=== PATIENT | female | born 1940 | race African-American/Black ===

== ENCOUNTER 2017-01-08 11:42 | Emergency (ER) | payer BC, MEDICAID ==
[~2017-01-08] VITALS: Ht 152.4 cm; Wt 102.5 kg
[~2017-01-08 11:42] MED LIST: AMLO5TAB2; BENA20TA2; CLON0.2T; FURO40TA4; GABA300C8; HYDR-2762; ISOS60TA2; MELA3TAB PO; METO50TA10; SIMV40TA3; SPIR25TA3
[2017-01-08] MEDS ORDERED: IV NORMAL SALINE 1000ML BAG 1,000 ML IV SCH (12:40)
[2017-01-08] MEDS ORDERED: ONDANSETRON PF 4 MG/2 ML VIAL. IV ONE (12:45)
[2017-01-08] MEDS ORDERED: fentaNYL PF VIAL 100 MCG/2 ML VIAL IV PRN (12:45)
--- NOTE | 2017-01-08 12:47 | PHYS DOC ---
Past Medical History Past Medical History: Asthma, Diabetes-Type II, Hypertension Past Surgical History: Hysterectomy Alcohol Use: None Drug Use: None Adult General Chief Complaint Chief Complaint: ABDOMINAL PAIN HPI HPI Patient is a 76 year old female who presents with complaint of abdominal pain. Patient states that her symptoms started 2 days ago. Patient states that since onset of symptoms she has had difficulty tolerating oral intake. The patient states that she is having worsening pain around her umbilicus that comes in waves. Patient states she is having difficulty describing her pain but knows that it "hurts." Patient rates her pain currently as 7 out of 10. Patient states she tried taking Tylenol to help with symptoms with no relief. Patient denies any vomiting but does have nausea. Patient denies any bloody stools. Patient denies any history of similar symptoms. Patient has had surgical history of open appendectomy and hysterectomy. Review of Systems Review of Systems Constitutional: Denies fever or chills [] Eyes: Denies change in visual acuity, redness, or eye pain [] HENT: Denies nasal congestion or sore throat [] Respiratory: Denies cough or shortness of breath [] Cardiovascular: Denies chest pain or edema [] GI: Abdominal pain, nausea, denies vomiting, bloody stools or diarrhea [] : Denies dysuria or hematuria [] Musculoskeletal: Denies back pain or joint pain [] Integument: Denies rash or skin lesions [] Neurologic: Denies headache, focal weakness or sensory changes [] Current Medications Current Medications Current Medications Medications (Trade) Dose Ordered Sig/Jose Alejandro Start Time Stop Time Status Last Admin Dose Admin Fentanyl Citrate (Fentanyl 2ml Vial) 50 mcg PRN Q15MIN PRN 01/08/17 12:45 01/09/17 12:44 01/08/17 13:09 50 MCG Ondansetron HCl (Zofran) 4 mg 1X ONCE 01/08/17 12:45 01/08/17 12:46 DC 01/08/17 13:09 4 MG Sodium Chloride 1,000 ml @ 100 mls/hr Q10H 01/08/17 12:40 01/08/17 22:39 01/08/17 13:08 100 MLS/HR Allergies Allergies Allergies Coded Allergies Type Severity Reaction Last Updated Verified Sulfa (Sulfonamide Antibiotics) Allergy Intermediate 09/19/14 Yes Physical Exam Physical Exam Constitutional: Alert, obese, afebrile, appears in moderate discomfort. [] HENT: Normocephalic, atraumatic, bilateral external ears normal, oropharynx moist, no oral exudates, nose normal. [] Eyes: PERRLA, EOMI, conjunctiva normal, no discharge. [] Neck: Normal range of motion, no tenderness, supple, no stridor. [] Cardiovascular:Heart rate regular rhythm, no murmur [] Lungs & Thorax: Bilateral breath sounds clear to auscultation [] Abdomen: Hypoactive bowel sounds, mild abdominal distention, tenderness palpation in periumbilical area of abdomen with guarding, no masses, no pulsatile masses. [] Skin: Warm, dry, no erythema, no rash. [] Back: No tenderness, no CVA tenderness. [] Extremities: No tenderness, no cyanosis, no clubbing, ROM intact, no edema. [] Neurologic: Alert and oriented X 3, normal motor function, normal sensory function, no focal deficits noted. [] Current Patient Data Vital Signs Vital Signs Date Time Temp Pulse Resp B/P (MAP) Pulse Ox O2 Delivery O2 Flow Rate FiO2 01/08/17 15:04 86 16 140/65 (90) 99 Room Air 01/08/17 11:50 98.9 98.9 Lab Values Laboratory Tests Test 01/08/17 12:05 01/08/17 13:55 White Blood Count 12.7 x10^3/uL (4.0-11.0) H Red Blood Count 4.36 x10^6/uL (3.50-5.40) Hemoglobin 13.0 g/dL (12.0-15.5) Hematocrit 39.4 % (36.0-47.0) Mean Corpuscular Volume 90 fL (79-100) Mean Corpuscular Hemoglobin 30 pg (25-35) Mean Corpuscular Hemoglobin Concent 33 g/dL (31-37) Red Cell Distribution Width 14.0 % (11.5-14.5) Platelet Count 285 x10^3/uL (140-400) Neutrophils (%) (Auto) 81 % (31-73) H Lymphocytes (%) (Auto) 15 % (24-48) L Monocytes (%) (Auto) 3 % (0-9) Eosinophils (%) (Auto) 1 % (0-3) Basophils (%) (Auto) 0 % (0-3) Neutrophils # (Auto) 10.3 x10^3uL (1.8-7.7) H Lymphocytes # (Auto) 1.8 x10^3/uL (1.0-4.8) Monocytes # (Auto) 0.4 x10^3/uL (0.0-1.1) Eosinophils # (Auto) 0.1 x10^3/uL (0.0-0.7) Basophils # (Auto) 0.0 x10^3/uL (0.0-0.2) Sodium Level 141 mmol/L (136-145) Potassium Level 4.8 mmol/L (3.5-5.1) Chloride Level 103 mmol/L (98-107) Carbon Dioxide Level 27 mmol/L (21-32) Anion Gap 11 (6-14) Blood Urea Nitrogen 26 mg/dL (7-20) H Creatinine 1.4 mg/dL (0.6-1.0) H Estimated GFR (Cockcroft-Gault) 44.4 BUN/Creatinine Ratio 19 (6-20) Glucose Level 151 mg/dL (70-99) H Calcium Level 8.7 mg/dL (8.5-10.1) Total Bilirubin 0.4 mg/dL (0.2-1.0) Aspartate Amino Transferase (AST) 22 U/L (15-37) Alanine Aminotransferase (ALT) 14 U/L (14-59) Alkaline Phosphatase 70 U/L (46-116) Total Protein 7.0 g/dL (6.4-8.2) Albumin 3.3 g/dL (3.4-5.0) L Albumin/Globulin Ratio 0.9 (1.0-1.7) L Lipase 191 U/L (73-393) Urine Color [place] Urine Clarity Cloudy Urine pH 6.0 Urine Specific [place] >=1.030 Urine Protein 30 mg/dL (NEG-TRACE) Urine Glucose (UA) Negative mg/dL (NEG) Urine Ketones (Stick) Trace mg/dL (NEG) Urine Blood Negative (NEG) Urine Nitrite Negative (NEG) Urine Bilirubin Small (NEG) Urine Urobilinogen Dipstick 0.2 mg/dL (0.2 mg/dL) Urine Leukocyte Esterase Small (NEG) Urine RBC 0 /HPF (0-2) Urine WBC 1-4 /HPF (0-4) Urine Squamous Epithelial Cells Occ /LPF Urine Amorphous Sediment Present /HPF Urine Bacteria 0 /HPF (0-FEW) Urine Mucus Slight /LPF Laboratory Tests 01/08/17 12:05 Laboratory Tests 01/08/17 12:05 EKG EKG Interpreted by me: Heart rate 92, sinus rhythm, normal intervals, leftward axis , no acute ST/T-wave abnormalities present [] Radiology/Procedures Radiology/Procedures [facility] [address] [place] [address] IMAGING REPORT Signed PATIENT: SANDRA BILLINSG ACCOUNT: [id number] : 1940 LOCATION: ER AGE: 76 SEX: F EXAM STATUS: REG ER ORD. PHYSICIAN: RONNI GOMEZ MD REASON: abdominal pain PROCEDURE: CT ABDOMEN PELVIS WO CONTRAST CT of the abdomen and pelvis without contrast, 01/08/2017: History: Abdominal pain, nausea Noncontrast scans were obtained as requested. Comparison is made to a study from 12/29/2011. There is mild streaky atelectasis and/or scarring in the lung bases. Coronary artery calcifications are present. The heart is mildly enlarged. The unopacified liver shows no abnormality. No dense gallstones are seen. The pancreas is unremarkable. The spleen is of normal size. No right renal abnormality is detected. The left kidney is in an abnormal position located posterolaterally. The adjacent abdominal wall musculature is thin. The kidney appears to be adherent to the fascia at this level. The findings may be on a postsurgical basis. There is a nonobstructing 13 mm calculus in the lower pole of the left kidney which has increased in size since the previous study. The left renal collecting system is not dilated. The ureters are not dilated. No ureteral calculus is seen. Aortoiliac calcific plaquing is present without evidence of aneurysm. No abdominal or pelvic adenopathy is evident. There are surgical sutures involving the abdominal wall at the right groin level. The uterus is surgically absent. Colonic diverticula are present predominantly in the sigmoid and descending colon. No paracolonic inflammatory process is seen. The bowel loops are not dilated. The appendix is surgically absent. The stomach is not adequately delineated due to lack of distention and contrast opacification. There is a trace amount of free fluid in the deep pelvis. No free air is evident in the abdomen or pelvis. There is a small umbilical hernia containing only fat. There are moderate scattered degenerative changes in the spine. A lucency within the left side of the L1 vertebral body is unchanged suggesting a benign etiology. IMPRESSION: 1. Abnormal position of the left kidney suggesting partial herniation through an abdominal wall defect, perhaps postsurgical. This is unchanged since 2011. 2. Nonobstructing left intrarenal calculus. 3. Colonic diverticulosis. 4. Trace amount of free fluid in the pelvis. 5. Small fat-containing umbilical hernia. 6. Coronary artery disease. PQRS Compliance Statement: One or more of the following individualized dose reduction techniques were utilized for this examination: 1. Automated exposure control 2. Adjustment of the mA and/or kV according to patient size 3. Use of iterative reconstruction technique DICTATED and SIGNED BY: SHERMAN SHIN MD DATE: 01/08/17 9260 CC: INÉS CHAVEZ MD; RONNI GOMEZ MD ~ [] Course & Med Decision Making Course & Med Decision Making Pertinent Labs and Imaging studies reviewed. (See chart for details) Patient was given fentanyl, Zofran, and IV fluids in the emergency department. On reevaluation, patient states her symptoms have improved. Patient had several nonacute findings on her abdominal CT. The patient's location of pain is near a small umbilical hernia site that does not contain any bowel. The patient may be experiencing pain due to incarceration of a fat containing periumbilical hernia. The patient may be discharged with recommended follow-up in [address] Chavez. Patient provided with a prescription for [place] to help with pain control. Advised return emergency department for any worsening symptoms. Patient voiced understanding and in agreement with treatment plan. Dragon Disclaimer Dragon Disclaimer This electronic medical record was generated, in whole or in part, using a voice recognition dictation system. Departure Departure Impression: Primary Impression: Abdominal pain Disposition: 01 HOME, SELF-CARE Condition: IMPROVED Referrals: INÉS CHAVEZ MD (PCP) Patient Instructions: Abdominal Pain Additional Instructions: Follow-up in [address] Chavez for reevaluation. Return to the emergency department for any worsening symptoms. Scripts Ondansetron (ZOFRAN ODT) 4 Mg Tab.rapdis 4 MG PO Q8HRS Y for NAUSEA/VOMITING, #10 TAB Prov: RONNI GOMEZ MD 01/08/17 Hydrocodone/Apap 5-325 (NORCO 5-325 TABLET) 1 Each Tablet 1-2 TAB PO Q4-6HRS Y for PAIN, #20 TAB Prov: RONNI GOMEZ MD 01/08/17 Problem Qualifiers Primary Impression: Abdominal pain Abdominal location: periumbilical Qualified Codes: R10.33 - Periumbilical pain RONNI GOMEZ MD January 08, 2017 12:47
--- NOTE | 2017-01-08 13:08 | EKG ---
[facility] [address] [place] [address] Test Date: 2017-01-08 Test Time: 11:55:22 Pat Name: SANDRA BILLINGS Department: Room: Gender: F Studio Engineer: : 1940 Requested By: RONNI GOMEZ Order Number: [id number] Reading MD: oJselin Fitzgerald Measurements Intervals [place] Rate: 92 P: 18 AL: 172 QRS: -24 QRSD: 82 T: 28 QT: 374 QTc: 468 Interpretive Statements SINUS RHYTHM LEFTWARD AXIS OTHERWISE NORMAL ECG RI6.01 Unconfirmed report Compared to ECG 12/29/2011 08:25:55 Left-axis deviation now present T-wave abnormality no longer present Electronically Signed On 01-11-2017 20:39:46 CDT by Joselin Fitzgerald
[2017-01-08 13:10] LABS: BASO % 0 % (0-3); EOS % 1 % (0-3); HEMATOCRIT 39.4 % (36.0-47.0); LYMPH # 1.8 x10^3/uL (1.0-4.8); LYMPH % 15 % (24-48); MEAN CORPUSCULAR HEMOGLOBIN 30 pg (25-35); MEAN CORPUSCULAR HGB CONC 33 g/dL (31-37); MEAN CORPUSCULAR VOLUME 90 fL (79-100); MONO % 3 % (0-9); NEUT % 81 % (31-73); PLATELET COUNT 285 x10^3/uL (140-400); RED BLOOD COUNT 4.36 x10^6/uL (3.50-5.40); WHITE BLOOD COUNT 12.7 x10^3/uL (4.0-11.0)
[2017-01-08 13:23] LABS: CALCIUM 8.7 mg/dL (8.5-10.1); CREATININE 1.4 mg/dL (0.6-1.0); GFR 44.4
[2017-01-08 13:24] LABS: POTASSIUM 4.8 mmol/L (3.5-5.1)
[2017-01-08 13:30] LABS: ALBUMIN 3.3 g/dL (3.4-5.0); ALBUMIN/GLOBULIN RATIO 0.9 (1.0-1.7); TOTAL BILIRUBIN 0.4 mg/dL (0.2-1.0)
[2017-01-08 14:16] LABS: BILIRUBIN,URINE SMALL (NEG); GLUCOSE,URINE NEGATIVE (NEG); NITRITE,URINE NEGATIVE (NEG); PROTEIN,URINE 30 mg/dL (NEG-TRACE); UROBILINOGEN,URINE 0.2 mg/dL (0.2 mg/dL)
[2017-01-08 14:48] LABS: BACTERIA,URINE 0 /HPF (0-FEW); RBC,URINE 0 /HPF (0-2); SQUAMOUS EPITHELIAL CELL,UR OCC /LPF
[2017-01-08] MEDS ORDERED: HYDR-971 PO (15:07)
[2017-01-08] MEDS ORDERED: ONDA4TAB10 PO (15:07)
--- NOTE | 2017-01-08 15:20 | RAD ---
CT of the abdomen and pelvis without contrast, 01/08/2017: History: Abdominal pain, nausea Noncontrast scans were obtained as requested. Comparison is made to a study from 12/29/2011. There is mild streaky atelectasis and/or scarring in the lung bases. Coronary artery calcifications are present. The heart is mildly enlarged. The unopacified liver shows no abnormality. No dense gallstones are seen. The pancreas is unremarkable. The spleen is of normal size. No right renal abnormality is detected. The left kidney is in an abnormal position located posterolaterally. The adjacent abdominal wall musculature is thin. The kidney appears to be adherent to the fascia at this level. The findings may be on a postsurgical basis. There is a nonobstructing 13 mm calculus in the lower pole of the left kidney which has increased in size since the previous study. The left renal collecting system is not dilated. The ureters are not dilated. No ureteral calculus is seen. Aortoiliac calcific plaquing is present without evidence of aneurysm. No abdominal or pelvic adenopathy is evident. There are surgical sutures involving the abdominal wall at the right groin level. The uterus is surgically absent. Colonic diverticula are present predominantly in the sigmoid and descending colon. No paracolonic inflammatory process is seen. The bowel loops are not dilated. The appendix is surgically absent. The stomach is not adequately delineated due to lack of distention and contrast opacification. There is a trace amount of free fluid in the deep pelvis. No free air is evident in the abdomen or pelvis. There is a small umbilical hernia containing only fat. There are moderate scattered degenerative changes in the spine. A lucency within the left side of the L1 vertebral body is unchanged suggesting a benign etiology. IMPRESSION: 1. Abnormal position of the left kidney suggesting partial herniation through an abdominal wall defect, perhaps postsurgical. This is unchanged since 2011. 2. Nonobstructing left intrarenal calculus. 3. Colonic diverticulosis. 4. Trace amount of free fluid in the pelvis. 5. Small fat-containing umbilical hernia. 6. Coronary artery disease. PQRS Compliance Statement: One or more of the following individualized dose reduction techniques were utilized for this examination: 1. Automated exposure control 2. Adjustment of the mA and/or kV according to patient size 3. Use of iterative reconstruction technique
[2017-01-08 15:31] VITALS: BP 145/65
== END 2017-01-08 15:44 | disposition home or self-care (01) ==
LOC: ER 11:42
DX: R10.33 Periumbilical pain (principal); R11.0 Nausea; E11.9 Type 2 diabetes mellitus without complications; I10 Essential (primary) hypertension; Z88.2 Allergy status to sulfonamides; Z90.710 Acquired absence of both cervix and uterus
CPT/HCPCS: 36415; 74176; 80053; 81001; 83690; 85027; 87086; 93005; 96361; 96374; 96375; 99285; J2405; J3010; J7030

== ENCOUNTER → 2017-07-04 | Outpatient (CLI) | payer BC ==
[2017-04-13 14:37] VITALS: BP 116/56
[~2017-07-04] MED LIST changes: +ALLO100T PO; +CLON0.2T PO; +FURO-68 PO; +FURO-69 PO; +HYDR-971 PO; -MELA3TAB PO; +MELA3TAB2 PO; +METF500T4 PO; -METO50TA10; +METO50TA29; +ONDA4TAB10 PO
--- NOTE | 2017-07-05 15:49 | CARD ---
APPROVED REPORT EXAM: Two-dimensional and M-mode echocardiogram with Doppler and color Doppler. Other Information Quality : Average Technically limited study due to body habitus, restricted mobility, and shortness of breath. INDICATION Aortic Valve Disease Dyspnea Murmur 2D DIMENSIONS Left Atrium(2D)3.7 (1.6-4.0cm)IVSd1.4 (0.7-1.1cm) Aortic Root(2D)3.1 (2.0-3.7cm)LVDd4.6 (3.9-5.9cm) LVOT Diameter2.0 (1.8-2.4cm)PWd1.4 (0.7-1.1cm) LVDs3.2 (2.5-4.0cm)FS (%) 30.6 % SV56.6 mlLVEF(%)60.0 (>50%) Aortic Valve AoV Peak Kevin.232.8cm/sAoV VTI56.3cm AO Peak GR.21.7mmHgLVOT Peak Kevin.124.2cm/s AO Mean GR.12mmHgAVA (VMAX)1.71cm2 JEANETTE (VTI)1.32px7RA P 1/2 Nxsa643ks Mitral Valve MV E Iezocefz97.2cm/sMV DECEL [id number] MV A Uxpfwvyp68.9cm/sE/A Ratio0.9 Tricuspid Valve TR P. Szggrjnq135oc/sRAP QIMKBMGQ1djCs TR Peak Gr.66lwCaETDA79jzCm LEFT VENTRICLE The left ventricle is normal size. There is moderate concentric left ventricular hypertrophy. Left ve ntricle systolic function is normal. The Ejection Fraction is 60%. There is normal LV segmental wall motion. Transmitral Doppler flow pattern is Grade I-abnormal relaxation pattern. RIGHT VENTRICLE The right ventricle is normal size. The right ventricular systolic function is normal. ATRIA The left atrium size is normal. The right atrium size is normal. The interatrial septum is intact wit h no evidence for an atrial septal defect or patent foramen ovale as noted on 2-D or Doppler imaging. AORTIC VALVE The aortic valve is mildly calcified Doppler and Color Flow revealed mild aortic regurgitation. There is mild valvular aortic stenosis. Calculated aortic valve area is 1.6 cm2 with maximum pressure grad ient of 22 mmHg and mean pressure gradient of 12 mmHg. MITRAL VALVE The mitral valve is calcified but opens well. There is no evidence of mitral valve prolapse. There is no mitral valve stenosis. Doppler and Color Flow revealed no mitral valve regurgitation noted. TRICUSPID VALVE The tricuspid valve is normal in structure. Doppler and Color Flow revealed mild tricuspid regurgitat ion. There is no pulmonary hypertension. The PA pressure was estimated at 25 mmHg. There is no tricus pid valve prolapse or vegetation. There is no tricuspid valve stenosis. PULMONIC VALVE The pulmonary valve is normal in structure and function. Doppler and Color Flow revealed no pulmonic valvular regurgitation. There is no pulmonic valvular stenosis. GREAT VESSELS The aortic root is normal in size. The ascending aorta is normal in size. The IVC is normal in size a nd collapses >50% with inspiration. PERICARDIAL EFFUSION There is no pleural effusion. There is no evidence of significant pericardial effusion. Critical Notification Date: 07/05/2017 Critical Value: No <Conclusion> There is moderate concentric left ventricular hypertrophy. Left ventricle systolic function is normal. The Ejection Fraction is 60%. Transmitral Doppler flow pattern is Grade I-abnormal relaxation pattern. The left atrium size is normal. The right atrium size is normal. The aortic valve is mildly calcified Doppler and Color Flow revealed mild aortic regurgitation. There is mild valvular aortic stenosis. Calculated aortic valve area is 1.6 cm2 with maximum pressure gradient of 22 mmHg and mean pressure g radient of 12 mmHg. The mitral valve is calcified but opens well. Doppler and Color Flow revealed mild tricuspid regurgitation. There is no pulmonary hypertension. The PA pressure was estimated at 25 mmHg. The pulmonary valve is normal in structure and function. There is no evidence of significant pericardial effusion.
== END | disposition home or self-care (01) ==
LOC: ECHO 08:16
PROVIDERS: ATTEND Internal Medicine Cardiovascular Disease
DX: I08.2 Rheumatic disorders of both aortic and tricuspid valves (principal); R06.00 Dyspnea, unspecified
CPT/HCPCS: 93306

== ENCOUNTER → 2018-12-02 | Outpatient (CLI) | payer BC ==
[2017-04-13 14:37] VITALS: BP 116/56
[~2018-12-02] MED LIST changes: +AMLO5TAB10; -AMLO5TAB2; -BENA20TA2; +BENA20TA4; +GABA300C18; -GABA300C8; -HYDR-2762; +HYDR-2765; +HYDR-3164 PO; -HYDR-971 PO; +IOHEXOL 240 MG/ML 50ML VIAL. PO ONE; +IOHEXOL 300 MG/ML 100ML VIAL. IV ONE; +METF500T16 PO; -METF500T4 PO; -SPIR25TA3; +SPIR25TA5
--- NOTE | 2018-12-02 14:15 | RAD ---
CT ABD PELV W/ORAL IV CONTRAST Indication: Periumbilical abdominal pain Technique: Postcontrast CT imaging was performed of the abdomen pelvis, multiplanar reconstruction images submitted. Oral contrast was also given. One or more of the following individualized dose reduction techniques were utilized for this examination: 1. Automated exposure control 2. Adjustment of the mA and/or kV according to patient size 3. Use of iterative reconstruction technique. Comparison: January 08, 2017 Findings: There is again coronary calcification. No focal abnormality is identified of the liver, pancreas, spleen. There is no adrenal nodularity. There is again abnormal position of the left kidney, more deviated laterally with lateral cortical surface somewhat protruding beyond the expected plane of the fascia although the appearance is unchanged. There is again large left renal calculus about 1.5 cm inferiorly. There is small umbilical fascial defect as seen previously, no internal bowel. Bowel is not significantly dilated. There is no free fluid or free air. There is fairly prominent diverticulosis of the descending and proximal sigmoid colon not associated with significant inflammatory type change or wall thickening, this segment of bowel not opacified with oral contrast during exam. Appendix is not identified if still present. There is fairly advanced degenerative disc disease L5-S1, to a somewhat lesser degree at L4-5 and L1-2 with vacuum disc disease at these levels. Lytic lesion of the L1 vertebral body is unchanged, may be a hemangioma. There is multilevel lumbar facet degenerative change. There is at least mild spinal stenosis L4-5 and L3-4. There is multilevel lumbar neural foramina compromise most notable bilaterally at L4-5 and L5-S1. IMPRESSION: 1. There is again small umbilical fascial defect, no internal bowel. There is no significant inflammatory type change. There is again diverticulosis of the descending to proximal sigmoid colon. Appendix is not identified if still present. 2. There is again large left renal calculus. 3. There is similar appearance deviation of the left kidney more laterally with protrusion beyond the expected fascial plane which may be on chronic or postsurgical basis. 4. There is multilevel lumbar degenerative disc disease, also at least mild spinal stenosis such as L3-4 and L4-5. There is also multilevel lumbar neural foramina compromise. 5. There is coronary calcification. Electronically signed by: Toby Cota MD (12/02/2018 2:12 PM) [id number]
== END | disposition home or self-care (01) ==
LOC: CT 07:36
PROVIDERS: ATTEND Family Medicine
DX: K57.30 Diverticulosis of large intestine without perforation or abscess without bleeding (principal); N20.0 Calculus of kidney; I25.10 Atherosclerotic heart disease of native coronary artery without angina pectoris; M51.36 Other intervertebral disc degeneration, lumbar region; M48.061 Spinal stenosis, lumbar region without neurogenic claudication
CPT/HCPCS: 74177; Q9966; Q9967

== ENCOUNTER 2020-09-16 17:30 | Inpatient (IN) | payer BC, MEDICARE ==
[~2020-09-16] VITALS: Ht 162.6 cm; Wt 96.9 kg
[~2020-09-16 17:30] MED LIST changes: +AMLO-186 PO; -AMLO5TAB10; +ASPI325T8 PO; +ATOR40TA59 PO; +BRIM5DRO3 OU; +BUDE10.2 IH; +GABA300C9 PO; +HALOPERIDOL LACTATE 5 MG/ML VIAL. IVP ONE; +INSU300I SQ; -IOHEXOL 240 MG/ML 50ML VIAL. PO ONE; -IOHEXOL 300 MG/ML 100ML VIAL. IV ONE; +ISOS120T4 PO; -ISOS60TA2; +ISOS60TA55; +IV NORMAL SALINE 1000ML BAG 1,000 ML IV ONE; +LATA2.5D3 OU; -MELA3TAB2 PO; +MELA3TAB4 PO; +METF10007 PO; +METO50CA PO; +OMEP20CA16 PO; +PRAS10TA9 PO; +SERT-267 PO; +SIMV40TA18; -SIMV40TA3; +VENTOLIN HFA18 GM INH
[2020-09-16] MEDS ORDERED: HALOPERIDOL LACTATE 5 MG/ML VIAL. IVP ONE (17:50)
[2020-09-16] MEDS ORDERED: HALOPERIDOL LACTATE 5 MG/ML VIAL. ONE (17:51)
[2020-09-16 18:23] LABS: BASO % 0 % (0-3); BILIRUBIN,URINE NEGATIVE (NEG); CLARITY,URINE CLOUDY; COLOR,URINE YELLOW; EOS % 0 % (0-3); HEMATOCRIT 43.8 % (36.0-47.0); HEMOGLOBIN 13.8 g/dL (12.0-15.5); LYMPH # 0.9 x10^3/uL (1.0-4.8); LYMPH % 4 % (24-48); MEAN CORPUSCULAR HEMOGLOBIN 27 pg (25-35); MEAN CORPUSCULAR HGB CONC 32 g/dL (31-37); MEAN CORPUSCULAR VOLUME 87 fL (79-100); MONO # 0.7 x10^3/uL (0.0-1.1); MONO % 3 % (0-9); NEUT # 22.8 x10^3/uL (1.8-7.7); NEUT % 93 % (31-73); NITRITE,URINE NEGATIVE (NEG); PLATELET COUNT 345 x10^3/uL (140-400); PROTEIN,URINE >=300 mg/dL (NEG-TRACE); RED BLOOD COUNT 5.04 x10^6/uL (3.50-5.40); UROBILINOGEN,URINE 0.2 mg/dL (0.2 mg/dL); WHITE BLOOD COUNT 24.4 x10^3/uL (4.0-11.0)
--- NOTE | 2020-09-16 18:26 | PHYS DOC ---
Past Medical History Past Medical History: Asthma, Diabetes-Type II, Hypertension, Renal Failure, Other (BULMARO HARTMANN DO) Past Surgical History: Appendectomy, Hysterectomy, Other Additional Past Surgical Histo: NEPHROSTOMY TUBE PLACED/REMOVAL, CARDIAC STENT (BULMARO HARTMANN DO) Smoking Status: Never Smoker Alcohol Use: None Drug Use: None (BULMARO HARTMANN DO) General Adult EDM: Chief Complaint: ALTERED MENTAL STATUS HPI: HPI: 80 yo F PMH CAD 05/2021 (on AC), IDDM, HTN and morbid obesity, presents to the ed bibems, concern for altered mental status, found down, naked in her bedroom, not talking, by her daughter who she lives with. Patient was last known well at her baseline around 7 AM this morning where she was ambulatory, drinking coffee. Daughter reports patient is falling out of the bed that is only a few feet off the ground few times this week. No known history of DKA. (BULMARO HARTMANN DO) Review of Systems: Review of Systems: ROS: Unobtainable due to mental status (BULMARO HARTMANN DO) Heart Score: Risk Factors: Risk Factors: DM, Current or recent (<one month) smoker, HTN, HLP, family history of CAD, obesity. Risk Scores: Score 0 - 3: 2.5% MACE over next 6 weeks - Discharge Home Score 4 - 6: 20.3% MACE over next 6 weeks - Admit for Clinical Observation Score 7 - 10: 72.7% MACE over next 6 weeks - Early Invasive Strategies (BULMARO HARTMANN DO) Current Medications: Current Medications Medications (Trade) Dose Ordered Sig/Jose Alejandro Start Time Stop Time Status Last Admin Dose Admin Haloperidol Lactate (Haldol Inj) 5 mg STK-MED ONCE 09/16/20 17:51 09/16/20 17:52 DC (BULMARO HARTMANN DO) Allergies: Allergies: Allergies Coded Allergies Type Severity Reaction Last Updated Verified Sulfa (Sulfonamide Antibiotics) Allergy Intermediate 09/19/14 Yes (BULMARO HARTMANN DO) Physical Exam: PE: Constitutional: afebrile, very hypertensive, HENT: Normocephalic, atraumatic, very dry mucous membranes, grimaces with pain- no facial droop, prefers looking to the left but does look towards right Eyes: EOMI, conjunctiva normal, no discharge, Neck: Normal range of motion, short neck - no JVD, no rigidity Cardiovascular: S1/2 present, tachycardic Lungs & Thorax: no wheezing/stridor, bilateral equal chest rise, mild/mod tachypnea Abdomen: soft, no tenderness, Skin: Warm, dry, no erythema, no rash. [] Extremities: No tenderness, no edema Neurologic: Moving all 4 extremities, GCS 8 ([id number]) Psychologic: agitated, resisting staff (BULMARO HARTMANN DO) EKG: EKG: [] (BULMARO HARTMANN DO) Radiology/Procedures: Radiology/Procedures: [] (BULMARO HARTMANN DO) Course & Med Decision Making: Course & Med Decision Making Pertinent Labs and Imaging studies reviewed. (See chart for details) Patient seen on ED presentation and labs ordered. Pt may need CVC vs impending airway compromise/RSI. Due to shift change patient was signed out to oncoming physician Dr. Leonard for further disposition and management. Ddx-hypertensive emergency, intracranial hemorrhage, DKA, sepsis, etc. Pt is in critical condition-daughter aware. (BULMARO HARTMANN DO) Course & Med Decision Making I assumed care of this patient at 1900. Briefly this is a very ill 80F presenting with altered mental status as well as initial impression noting acute hypertension as well as (with Kussmaul breathing. An extensive work-up was obtained including infectious work-up, referral to mental status including possible toxins and ABG. ABG did demonstrate a mild acidosis. Primarily metabolic. Further work-up demonstrated an acute leukocytosis, but appears to be in acute renal failure and lactic acidosis. A D-dimer was also sent to the patient's hypertension to make sure that there is no evidence of pulmonary embolism or aortic dissection or this came back positive. CT scan of the head was obtained which was negative for any intracranial hemorrhage and a CT scan of the chest abdomen pelvis with IV contrast was obtained without any clear evidence of pulmonary embolism or dissection. Patient remains altered but hemodynamically stable. Patient was noted to have been given 1 inch of Nitropaste on arrival with improvement of her hypertension. At this time there is no clear source of the patient's altered mental status but she has been started on empiric antibiotics due to concern for early septic shock. Fluid resuscitation has also been started but we are being cautious about this because the patient appears to have an elevated BNP and a history of congestive heart failure. (RONNI LEONARD MD) Dragon Disclaimer: Dragon Disclaimer: This electronic medical record was generated, in whole or in part, using a voice recognition dictation system. (BULMARO HARTMANN DO) Departure Departure Impression: Primary Impression: AMS (altered mental status) Disposition: ADMITTED INPT THIS HOSP Condition: GUARDED Referrals: Ronnell HWANG MD (PCP) BULMARO HARTMANN DO Sep 16, 2020 18:26 RONNI LEONARD MD Sep 16, 2020 21:51
[2020-09-16 18:28] LABS: BASE EXCESS ABG -10 mmol/L (-3-3); HCO3 ABG 15 mmol/L (21-28); PCO2 ABG 31 mmHg (35-46); PO2 ABG 82 mmHg (65-108); SAT O2 ABG 95 % (92-99)
[2020-09-16 18:30] LABS: BARBITURATES NEG (NEG); BENZODIAZEPINES NEG (NEG); CANNABINOIDS NEG (NEG); COCAINE NEG (NEG); METHADONE NEG (NEG); OPIATES NEG (NEG); PHENCYCLIDINE NEG (NEG)
[2020-09-16 18:30] LABS: FIO2 ABG PT ON RA
[2020-09-16 18:32] LABS: PROTHROMBIN TIME PATIENT 14.9 SEC (11.7-14.0)
[2020-09-16 18:35] LABS: AMORPHOUS SEDIMENT,UR PRESENT /HPF; BACTERIA,URINE FEW /HPF (0-FEW)
[2020-09-16 18:36] LABS: AMPHETAMINE/METHAMPHETAMINE NEG (NEG)
[2020-09-16 18:38] LABS: CALCIUM 9.6 mg/dL (8.5-10.1); CREATININE 1.9 mg/dL (0.6-1.0); GFR 30.9; HYALINE CASTS, URINE OCCASIONAL /HPF; POTASSIUM 4.7 mmol/L (3.5-5.1); RBC,URINE TNTC /HPF (0-2)
[2020-09-16 18:42] LABS: ALBUMIN 3.6 g/dL (3.4-5.0); DIRECT BILIRUBIN 0.1 mg/dL (0.0-0.2); MAGNESIUM 2.7 mg/dL (1.8-2.4); TOTAL BILIRUBIN 0.4 mg/dL (0.2-1.0); TOTAL PROTEIN 8.2 g/dL (6.4-8.2)
[2020-09-16 18:43] LABS: SALIC < 2.8 mg/dL (2.8-20.0)
[2020-09-16 18:44] LABS: ACETAMIN < 2 mcg/ml (10-30)
[2020-09-16] MEDS ORDERED: NITROGLYCERIN OINT 1 GM PACKET. ONE (18:46)
[2020-09-16] MEDS ORDERED: NITROGLYCERIN OINT 1 GM PACKET. TP ONE ×2 (19:00)
[2020-09-16] MEDS ORDERED: MIDAZOLAM HCL/PF 5 MG/5 ML VIAL. NS ONE (19:00)
[2020-09-16 19:02] LABS: % BANDS 3 % (0-9); % LYMPHS 3 % (24-48); % MONOS 3 % (0-10); % SEGS 91 % (35-66); PLT ESTIMATE ADEQUATE (ADEQUATE)
--- NOTE | 2020-09-16 19:13 | RAD ---
Chest AP portable at 1858: Reason for examination: Altered mental status. Comparison is made to previous study dated 05/31/2020. The heart size is mildly enlarged but unchanged. Mediastinum is unremarkable. Lung ramey are clear. No acute bony abnormalities are seen. Impression: Mild cardiomegaly which is stable. No acute cardiopulmonary disease. Electronically signed by: Nessa Andres MD (09/16/2020 7:11 PM) [facility]
[2020-09-16] MEDS ORDERED: IV NORMAL SALINE 1000ML BAG 1,000 ML IV ONE (19:30)
[2020-09-16] MEDS ORDERED: INSULIN,REGULAR 100 UNIT DRIP 100 ML IV ONE (19:30)
--- NOTE | 2020-09-16 19:54 | RAD ---
CT Head W/O Contrast: History: Reason: ams / Spl. Instructions: / History: Comparison: none Axial images were obtained without contrast. There is moderate diffuse atrophy. There is no mass effect, extraaxial fluid collections or hydrocep halus. There is no gross bleed. Mild, patchy periventricular and subcortical white matter hypoatten uation is seen. There is no focal loss of juarez-white matter distinction to suggest acute ischemia, i .e. stroke. The study somewhat limited by streak artifact from mild motion and skull base density. Impression: No acute findings. PQRS Compliance Statement: One or more of the following individualized dose reduction techniques were utilized for this examinat ion: 1. Automated exposure control 2. Adjustment of the mA and/or kV according to patient size 3. Use of iterative reconstruction technique Electronically signed by: Jacob Wasserman III, MD (09/16/2020 7:52 PM) [facility]SEFINA
[2020-09-16] MEDS ORDERED: IOHEXOL 350 MG/ML 100 ML VIAL. IV ONE (20:00)
[2020-09-16] MEDS ORDERED: CONTRAST GIVEN. MC PRN (20:00)
--- NOTE | 2020-09-16 20:23 | RAD ---
CT angiogram of the chest, abdomen and pelvis pre and postcontrast: Reason for examination: Chest pain. Altered mental status. Dissection protocol. Comparison is made to previous study dated 12/02/2018. Helical images were obtained through the chest, abdomen and pelvis pre and post intravenous administr ation of 80 cc Omnipaque 350 using angiographic protocol. 3-D MIPS reconstruction was performed in sa gittal and coronal planes and volume rendered image was obtained. Exposure: One or more of the following individualized dose reduction techniques were utilized for thi s examination: 1. Automated exposure control 2. Adjustment of the mA and/or kV according to patient size 3. Use of iterative reconstruction technique. No abnormality seen at the thyroid gland. The trachea and mainstem bronchi show no intraluminal lesio ns. No abnormality seen at the esophagus. There is a small hiatal hernia present. The thoracic aorta shows no aneurysmal dilatation or dissection. The heart size is enlarged with no pericardial effusion . The lung ramey show some basilar atelectasis but no consolidated infiltrates or pleural effusions. No abnormality seen at the liver, spleen, adrenal glands, gallbladder or pancreas. There continues to be a nonobstructing calculus in the lower pole of the left kidney with no hydronephrosis or evidence of obstructive uropathy. No renal masses are seen. The left kidney continues to be rotated but uncha nged. There is some diverticulosis in the sigmoid colon and descending colon without diverticulitis o r colitis. Yanez catheter is seen in the bladder and the bladder is not distended. No abnormality seen at the va ginal cuff. No free fluid or free air is seen in the abdomen or pelvis. There are some degenerative c hanges in the spine especially at the L5-S1 disc level. IMPRESSION: Small hiatal hernia. No aortic aneurysm or dissection. Basilar atelectasis in the lungs. Continued presence of a 1 cm calculus at the lower pole of the left kidney. No hydronephrosis or obst ructive uropathy. Diverticulosis without diverticulitis. Electronically signed by: Nessa Andres MD (09/16/2020 8:20 PM) [facility]ANNE
[2020-09-16] MEDS ORDERED: ACETAMINOPHEN 325 MG TABLET. PO PRN (21:15)
[2020-09-16] MEDS ORDERED: DOCUSATE SODIUM 100 MG CAPSULE. PO PRN (21:15)
[2020-09-16] MEDS ORDERED: VANCOMYCIN 1.5 GM in IV NORMAL SALINE 500ML BAG 500 ML IV ONE (21:15)
[2020-09-16] MEDS ORDERED: SENNOSIDES 8.6 MG TABLET PO PRN (21:15)
[2020-09-16] MEDS ORDERED: DEXTROSE 50% 25 GM / 50ML DISP.SYRIN. IV PRN (21:15)
[2020-09-16] MEDS ORDERED: ONDANSETRON PF 4 MG/2 ML VIAL. IVP PRN (21:15)
[2020-09-16] MEDS ORDERED: cefTRIAXone IV Push 1 GM VIAL. IVP ONE (21:30)
[2020-09-16] MEDS ORDERED: POTASSIUM CHLORIDE 10MEQ 100 ML IV PRN (21:30)
[2020-09-16] MEDS ORDERED: INSULIN REGULAR VIAL 100 UNIT in IV NORMAL SALINE 100ML 100 ML IV PRN (21:30)
--- NOTE | 2020-09-16 21:55 | PDOC1 ---
History and Physical Date of Service: DOS: DATE: 09/16/20 TIME: 21:41 Chief Complaint: Chief Complain: AMS History of Present Illness: HPI: 80 yo F PMH CAD 05/2021 (on AC), IDDM, HTN and morbid obesity, presents to the ed bibems, concern for altered mental status, found down, naked in her bedroom, not talking, by her daughter who she lives with. Patient was last known well at her baseline around 7 AM this morning where she was ambulatory, drinking coffee. Daughter reports patient is falling out of the bed that is only a few feet off the ground few times this week. No known history of DKA. Past Medical/Surgical History: PMH/PSH: Past Medical History: Asthma, Diabetes-Type II, Hypertension, Renal Failure, Other Past Surgical History: Appendectomy, Hysterectomy, NEPHROSTOMY TUBE PLACED/REMOVAL, CARDIAC STENT Allergies: Allergies: Coded Allergies: Sulfa (Sulfonamide Antibiotics) (Verified Allergy, Intermediate, 09/19/14) Family History: Family History: Reviewed with no relevant findings Social History: Social History: Smoking Status: Never Smoker Alcohol Use: None Drug Use: None Current Medications: Current Medications Current Medications Haloperidol Lactate (Haldol Inj) 5 mg STK-MED ONCE .ROUTE ; Start 09/16/20 at 17:51; Stop 09/16/20 at 17:52; Status DC Haloperidol Lactate (Haldol Inj) 5 mg 1X ONCE IVP Last administered on 09/16/20at 17:30; Start 09/16/20 at 17:30; Stop 09/16/20 at 18:41; Status DC Haloperidol Lactate (Haldol Inj) 5 mg 1X ONCE IVP Last administered on 09/16/20at 17:50; Start 09/16/20 at 17:50; Stop 09/16/20 at 18:41; Status DC Sodium Chloride 1,000 ml @ 1,000 mls/hr 1X ONCE IV Last administered on 09/16/20at 17:50; Start 09/16/20 at 17:30; Stop 09/16/20 at 18:44; Status DC Nitroglycerin (Nitro-Bid Oint) 1 inch STK-MED ONCE .ROUTE ; Start 09/16/20 at 18:46; Stop 09/16/20 at 18:46; Status DC Nitroglycerin (Nitro-Bid Oint) 1 inch 1X ONCE TP Last administered on 09/16/20at 18:48; Start 09/16/20 at 19:00; Stop 09/16/20 at 19:01; Status DC Nitroglycerin (Nitro-Bid Oint) 1 inch 1X ONCE TP ; Start 09/16/20 at 19:00; Stop 09/16/20 at 19:01; Status DC Midazolam HCl (Versed) 2 mg 1X ONCE NS Last administered on 09/16/20at 19:17; Start 09/16/20 at 19:00; Stop 09/16/20 at 19:01; Status DC Insulin Human Regular 100 ml @ 0 mls/hr 1X ONCE IV Last administered on 09/16/20at 20:51; Start 09/16/20 at 19:30; Stop 09/16/20 at 19:31; Status DC Sodium Chloride 1,000 ml @ 1,000 mls/hr 1X ONCE IV Last administered on 09/16/20at 20:08; Start 09/16/20 at 19:30; Stop 09/16/20 at 20:29; Status DC Iohexol (Omnipaque 350 Mg/ml) 80 ml 1X ONCE IV Last administered on 09/16/20at 20:03; Start 09/16/20 at 20:00; Stop 09/16/20 at 20:01; Status DC Info (CONTRAST GIVEN -- Rx MONITORING) 1 each PRN DAILY PRN MC SEE COMMENTS; Start 09/16/20 at 20:00; Stop 09/18/20 at 19:59 Piperacillin Sod/ Tazobactam Sod 3.375 gm/Sodium Chloride 50 ml @ 100 mls/hr 1X ONCE IV ; Start 09/16/20 at 22:00; Stop 09/16/20 at 22:29 Vancomycin HCl 1.5 gm/Sodium Chloride 500 ml @ 250 mls/hr 1X ONCE IV ; Start 09/16/20 at 21:15; Stop 09/16/20 at 23:14; Status UNV Ceftriaxone Sodium (Rocephin) 2 gm 1X ONCE IVP ; Start 09/16/20 at 21:30; Stop 09/16/20 at 21:31; Status DC Vancomycin HCl 2 gm/Sodium Chloride 500 ml @ 250 mls/hr 1X ONCE IV ; Start 09/16/20 at 22:00; Stop 09/16/20 at 23:59 Vancomycin HCl (Vanco Per Pharmacy) 1 each PRN DAILY PRN MC SEE COMMENTS; Start 09/16/20 at 21:15 Sennosides (Senna) 17.2 mg PRN BID PRN PO CONSTIPATION 1ST CHOICE; Start 09/16/20 at 21:15 Docusate Sodium (Colace) 100 mg PRN DAILY PRN PO HARD STOOLS; Start 09/16/20 at 21:15 Ondansetron HCl (Zofran) 4 mg PRN Q6HRS PRN IVP NAUSEA/VOMITING 1ST CHOICE; Start 09/16/20 at 21:15 Dextrose (Dextrose 50%-Water Syringe) 12.5 gm PRN Q15MIN PRN IV SEE COMMENTS; Start 09/16/20 at 21:15 Acetaminophen (Tylenol) 650 mg PRN Q4HRS PRN PO TEMP OVER 100.4F OR MILD PAIN; Start 09/16/20 at 21:15 Sodium Chloride 1,000 ml @ 250 mls/hr Q4H IV ; Start 09/16/20 at 23:00 Insulin Human Regular 100 unit/ Sodium Chloride 101 ml @ 0 mls/hr CONT PRN PRN IV PER PROTOCOL; Start 09/16/20 at 21:30 Potassium Chloride/Water 100 ml @ 100 mls/hr PRN Q1HR PRN IV SEE COMMENTS; Start 09/16/20 at 21:30 Potassium Chloride/Water 100 ml @ 100 mls/hr PRN Q1HR PRN IV SEE COMMENTS; Start 09/16/20 at 21:30 Potassium Chloride/Water 100 ml @ 100 mls/hr PRN Q1HR PRN IV SEE COMMENTS; Start 09/16/20 at 21:30 Active Scripts Active Atorvastatin Calcium 40 Mg Tablet 40 Mg PO QHS 90 Days Effient (Prasugrel Hcl) 10 Mg Tablet 10 Mg PO DAILYWBKFT 90 Days Reported Ventolin Hfa Inhaler (Albuterol Sulfate) 18 Gm Hfa.aer.ad 2 Puff INH QID Symbicort 160-4.5 Mcg Inhaler (Budesonide/Formoterol Fumarate) 10.2 Gm Hfa.aer.ad 2 Puff IH BID Aspirin 325 Mg Tablet 325 Mg PO DAILY Alphagan P (Brimonidine Tartrate) 5 Ml Drops 1 Drop OU BID Latanoprost 2.5 Ml Drops 1 Drop OU BID Omeprazole 20 Mg Capsule.dr 20 Mg PO DAILY Isosorbide Mononitrate Er (Isosorbide Mononitrate) 120 Mg Tab.er.24h 1 Tab PO QAM 90 Days Gabapentin 300 Mg Capsule 1 Cap PO TID 90 Days Metformin Hcl 1,000 Mg Tablet 1 Tab PO BID 90 Days Toujeo Solostar (Insulin Glargine,Hum.rec.anlog) 300 Unit/1 Ml Insuln.pen 20 Units SQ QHS 90 Days Sertraline Hcl 50 Mg Tablet 1 Tab PO DAILY 90 Days Lasix (Furosemide) 40 Mg Tablet 40 Mg PO DAILYWBKFT Hydrocodone-Apap 7.5-325 (Hydrocodone Bit/Acetaminophen) 1 Each Tablet Amlodipine Besylate 5 Mg Tablet 5 Mg PO BID Metoprolol Succinate 50 Mg Tab.er.24h 50 DAILY ROS: Review of Systems Review of System REVIEW OF SYSTEMS: GENERAL: Denies weakness SKIN: No bruising, hair changes or rashes. EYES: No blurred, double or loss of vision. NOSE AND THROAT: No history of nosebleeds, hoarseness or sore throat. HEART: No history of palpitations, chest pain or shortness of breath on exertion. LUNGS: Denies cough, hemoptysis, wheezing or shortness of breath. GASTROINTESTINAL: Denies changes in appetite, nausea, vomiting, diarrhea or constipation. GENITOURINARY: No history of frequency, urgency, hesitancy or nocturia. NEUROLOGIC: Denies history of numbness, tingling, or tremor. PSYCHIATRIC: No history of panic, anxiety or depression. ENDOCRINE: No history of heat or cold intolerance, polyuria or polydipsia. EXTREMITIES: Denies joint pain, pain on walking or stiffness. Physical Exam: Vital Signs: Vital Signs Date Time Temp Pulse Resp B/P (MAP) Pulse Ox O2 Delivery O2 Flow Rate FiO2 09/16/20 18:48 131 238/111 09/16/20 18:41 32 98 09/16/20 18:28 Room Air 09/16/20 17:30 97.7 97.7 Physcial Exam: GEN: No apparent distress. Alert and oriented HEENT: Normal cephalic, atraumatic, external auditory canals are patent EYES: Extraocular muscles are intact, pupil are equally round and reactive to light and accommodation MUSCULOSKELETAL: Well developed , well nourished, good range of motion ENDOCRINE: No thyromegaly was palpated LYMPHATICS: No cervical chain or axillary nodes were noted HEMATOPOIETIC: No bruising NECK: Supple, no JVD, no thyromegaly was noted LUNGS: Clear to auscultation in all lung ramey without rhonchi or wheezing HEART: RRR, S!, S2 present. Peripheral pulses intact, no obvious murmurs noted ABDOMEN: Soft, nontender. Positive bowel sounds, no organomegaly, normal bowel sounds EXTREMITIES: Without clubbing, cyanosis, or edema. Pedal pulses intact. Negative Homans sign NEUROLOGIC: Normal speech and tone. A&O x 3, moves all extremities, no obvious focal deficits PSYCHIATRIC: Normal affect, normal mood. Stable SKIN: No ulcerations or rashes, good skin turgor, no jaundice VASCULAR: Good capillary refill, neurovascular bundle appears to be intact Labs: Labs: Laboratory Tests Test 09/16/20 17:54 09/16/20 18:00 09/16/20 20:43 O2 Saturation 95 % (92-99) Arterial Blood pH 7.31 (7.35-7.45) Arterial Blood pCO2 at Patient Temp 31 mmHg (35-46) Arterial Blood pO2 at Patient Temp 82 mmHg (65-108) Arterial Blood HCO3 15 mmol/L (21-28) Arterial Blood Base Excess -10 mmol/L (-3-3) FiO2 Pt on ra White Blood Count 24.4 x10^3/uL (4.0-11.0) Red Blood Count 5.04 x10^6/uL (3.50-5.40) Hemoglobin 13.8 g/dL (12.0-15.5) Hematocrit 43.8 % (36.0-47.0) Mean Corpuscular Volume 87 fL (79-100) Mean Corpuscular Hemoglobin 27 pg (25-35) Mean Corpuscular Hemoglobin Concent 32 g/dL (31-37) Red Cell Distribution Width 15.0 % (11.5-14.5) Platelet Count 345 x10^3/uL (140-400) Neutrophils (%) (Auto) 93 % (31-73) Lymphocytes (%) (Auto) 4 % (24-48) Monocytes (%) (Auto) 3 % (0-9) Eosinophils (%) (Auto) 0 % (0-3) Basophils (%) (Auto) 0 % (0-3) Neutrophils # (Auto) 22.8 x10^3/uL (1.8-7.7) Lymphocytes # (Auto) 0.9 x10^3/uL (1.0-4.8) Monocytes # (Auto) 0.7 x10^3/uL (0.0-1.1) Eosinophils # (Auto) 0.0 x10^3/uL (0.0-0.7) Basophils # (Auto) 0.0 x10^3/uL (0.0-0.2) Segmented Neutrophils % 91 % (35-66) Band Neutrophils % 3 % (0-9) Lymphocytes % 3 % (24-48) Monocytes % 3 % (0-10) Platelet Estimate Adequate (ADEQUATE) Prothrombin Time 14.9 SEC (11.7-14.0) Prothromb Time International Ratio 1.2 (0.8-1.1) Activated Partial Thromboplast Time 24 SEC (24-38) D-Dimer (Ivory) 1.25 ug/mlFEU (0.00-0.50) Urine Collection Type Unknown Urine Color Yellow Urine Clarity Cloudy Urine pH 5.0 (<5.0-8.0) Urine Specific [place] >=1.030 (1.000-1.030) Urine Protein >=300 mg/dL (NEG-TRACE) Urine Glucose (UA) >=1000 mg/dL (NEG) Urine Ketones (Stick) 15 mg/dL (NEG) Urine Blood Large (NEG) Urine Nitrite Negative (NEG) Urine Bilirubin Negative (NEG) Urine Urobilinogen Dipstick 0.2 mg/dL (0.2 mg/dL) Urine Leukocyte Esterase Negative (NEG) Urine RBC Tntc /HPF (0-2) Urine WBC 11-20 /HPF (0-4) Urine Squamous Epithelial Cells Few /LPF Urine Amorphous Sediment Present /HPF Urine Bacteria Few /HPF (0-FEW) Urine Cellular Casts Occ /HPF Urine Hyaline Casts Occasional /HPF Urine Mucus Slight /LPF Sodium Level 135 mmol/L (136-145) Potassium Level 4.7 mmol/L (3.5-5.1) Chloride Level 96 mmol/L (98-107) Carbon Dioxide Level 19 mmol/L (21-32) Anion Gap 20 (6-14) Blood Urea Nitrogen 22 mg/dL (7-20) Creatinine 1.9 mg/dL (0.6-1.0) Estimated GFR (Cockcroft-Gault) 30.9 Glucose Level 789 mg/dL (70-99) Lactic Acid Level 6.7 mmol/L (0.4-2.0) Calcium Level 9.6 mg/dL (8.5-10.1) Magnesium Level 2.7 mg/dL (1.8-2.4) Total Bilirubin 0.4 mg/dL (0.2-1.0) Direct Bilirubin 0.1 mg/dL (0.0-0.2) Aspartate Amino Transf (AST/SGOT) 23 U/L (15-37) Alanine Aminotransferase (ALT/SGPT) 30 U/L (14-59) Alkaline Phosphatase 123 U/L (46-116) Creatine Kinase 403 U/L (26-192) Troponin I Quantitative < 0.017 ng/mL (0.000-0.055) ND-Evs-F-Type Natriuretic Peptide 1358 pg/mL (0-449) Total Protein 8.2 g/dL (6.4-8.2) Albumin 3.6 g/dL (3.4-5.0) Thyroid Stimulating Hormone (TSH) 0.774 uIU/mL (0.358-3.74) Salicylates Level < 2.8 mg/dL (2.8-20.0) Salicylate Last Dose Date Unknown Salicylate Last Dose Time Unknown Urine Opiates Screen Neg (NEG) Urine Methadone Screen Neg (NEG) Acetaminophen Level < 2 mcg/ml (10-30) Acetaminophen Last Dose Date Unknown Acetaminophen Last Dose Time Unknown Urine Barbiturates Neg (NEG) Urine Phencyclidine Screen Neg (NEG) Urine Amphetamine/Methamphetamine Neg (NEG) Urine Benzodiazepines Screen Neg (NEG) Urine Cocaine Screen Neg (NEG) Urine Cannabinoids Screen Neg (NEG) Urine Ethyl Alcohol Neg (NEG) Acetone Level Neg (NEG) Glucose (Fingerstick) 557 mg/dL (70-99) Laboratory Tests Test 09/16/20 17:54 09/16/20 18:00 09/16/20 20:43 O2 Saturation 95 % (92-99) Arterial Blood pH 7.31 (7.35-7.45) Arterial Blood pCO2 at Patient Temp 31 mmHg (35-46) Arterial Blood pO2 at Patient Temp 82 mmHg (65-108) Arterial Blood HCO3 15 mmol/L (21-28) Arterial Blood Base Excess -10 mmol/L (-3-3) FiO2 Pt on ra White Blood Count 24.4 x10^3/uL (4.0-11.0) Red Blood Count 5.04 x10^6/uL (3.50-5.40) Hemoglobin 13.8 g/dL (12.0-15.5) Hematocrit 43.8 % (36.0-47.0) Mean Corpuscular Volume 87 fL (79-100) Mean Corpuscular Hemoglobin 27 pg (25-35) Mean Corpuscular Hemoglobin Concent 32 g/dL (31-37) Red Cell Distribution Width 15.0 % (11.5-14.5) Platelet Count 345 x10^3/uL (140-400) Neutrophils (%) (Auto) 93 % (31-73) Lymphocytes (%) (Auto) 4 % (24-48) Monocytes (%) (Auto) 3 % (0-9) Eosinophils (%) (Auto) 0 % (0-3) Basophils (%) (Auto) 0 % (0-3) Neutrophils # (Auto) 22.8 x10^3/uL (1.8-7.7) Lymphocytes # (Auto) 0.9 x10^3/uL (1.0-4.8) Monocytes # (Auto) 0.7 x10^3/uL (0.0-1.1) Eosinophils # (Auto) 0.0 x10^3/uL (0.0-0.7) Basophils # (Auto) 0.0 x10^3/uL (0.0-0.2) Segmented Neutrophils % 91 % (35-66) Band Neutrophils % 3 % (0-9) Lymphocytes % 3 % (24-48) Monocytes % 3 % (0-10) Platelet Estimate Adequate (ADEQUATE) Prothrombin Time 14.9 SEC (11.7-14.0) Prothromb Time International Ratio 1.2 (0.8-1.1) Activated Partial Thromboplast Time 24 SEC (24-38) D-Dimer (Ivory) 1.25 ug/mlFEU (0.00-0.50) Urine Collection Type Unknown Urine Color Yellow Urine Clarity Cloudy Urine pH 5.0 (<5.0-8.0) Urine Specific [place] >=1.030 (1.000-1.030) Urine Protein >=300 mg/dL (NEG-TRACE) Urine Glucose (UA) >=1000 mg/dL (NEG) Urine Ketones (Stick) 15 mg/dL (NEG) Urine Blood Large (NEG) Urine Nitrite Negative (NEG) Urine Bilirubin Negative (NEG) Urine Urobilinogen Dipstick 0.2 mg/dL (0.2 mg/dL) Urine Leukocyte Esterase Negative (NEG) Urine RBC Tntc /HPF (0-2) Urine WBC 11-20 /HPF (0-4) Urine Squamous Epithelial Cells Few /LPF Urine Amorphous Sediment Present /HPF Urine Bacteria Few /HPF (0-FEW) Urine Cellular Casts Occ /HPF Urine Hyaline Casts Occasional /HPF Urine Mucus Slight /LPF Sodium Level 135 mmol/L (136-145) Potassium Level 4.7 mmol/L (3.5-5.1) Chloride Level 96 mmol/L (98-107) Carbon Dioxide Level 19 mmol/L (21-32) Anion Gap 20 (6-14) Blood Urea Nitrogen 22 mg/dL (7-20) Creatinine 1.9 mg/dL (0.6-1.0) Estimated GFR (Cockcroft-Gault) 30.9 Glucose Level 789 mg/dL (70-99) Lactic Acid Level 6.7 mmol/L (0.4-2.0) Calcium Level 9.6 mg/dL (8.5-10.1) Magnesium Level 2.7 mg/dL (1.8-2.4) Total Bilirubin 0.4 mg/dL (0.2-1.0) Direct Bilirubin 0.1 mg/dL (0.0-0.2) Aspartate Amino Transf (AST/SGOT) 23 U/L (15-37) Alanine Aminotransferase (ALT/SGPT) 30 U/L (14-59) Alkaline Phosphatase 123 U/L (46-116) Creatine Kinase 403 U/L (26-192) Troponin I Quantitative < 0.017 ng/mL (0.000-0.055) MB-Tum-D-Type Natriuretic Peptide 1358 pg/mL (0-449) Total Protein 8.2 g/dL (6.4-8.2) Albumin 3.6 g/dL (3.4-5.0) Thyroid Stimulating Hormone (TSH) 0.774 uIU/mL (0.358-3.74) Salicylates Level < 2.8 mg/dL (2.8-20.0) Salicylate Last Dose Date Unknown Salicylate Last Dose Time Unknown Urine Opiates Screen Neg (NEG) Urine Methadone Screen Neg (NEG) Acetaminophen Level < 2 mcg/ml (10-30) Acetaminophen Last Dose Date Unknown Acetaminophen Last Dose Time Unknown Urine Barbiturates Neg (NEG) Urine Phencyclidine Screen Neg (NEG) Urine Amphetamine/Methamphetamine Neg (NEG) Urine Benzodiazepines Screen Neg (NEG) Urine Cocaine Screen Neg (NEG) Urine Cannabinoids Screen Neg (NEG) Urine Ethyl Alcohol Neg (NEG) Acetone Level Neg (NEG) Glucose (Fingerstick) 557 mg/dL (70-99) Images: Images CT HEAD No acute intracranial findings CXR Impression: Mild cardiomegaly which is stable. No acute cardiopulmonary disease. CT ABD/PELVIS IMPRESSION: Small hiatal hernia. No aortic aneurysm or dissection. Basilar atelectasis in the lungs. Continued presence of a 1 cm calculus at the lower pole of the left kidney. No hydronephrosis or obstructive uropathy. Diverticulosis without diverticulitis. Assessment/Plan Assessment/Plan Sepsis, unclear etiology Acute DKA Lactic Acidosis AGMA MARISABEL due to vasomotor nephropathy Morbid Obesity Admit to ICU DKA protocol Continue IVF Strict I/O Monitor UOP F/u blood and Urine Cx Continue Vanc and Zosyn Lovenox for DVT prophylaxis Justifications for Admission Other Justification SEPSIS ILANA COYLE MD Sep 16, 2020 21:55
[2020-09-16] MEDS ORDERED: PIPERACILLIN/TAZOBACTAM 3.375 GM in IV NORMAL SALINE 50ML 50 ML IV ONE (22:00)
[2020-09-16] MEDS ORDERED: VANCOMYCIN 2 GM in IV NORMAL SALINE 500ML BAG 500 ML IV ONE (22:00)
[2020-09-16 22:30] LABS: INFLUENZA A PATIENT NEGATIVE (NEGATIVE); INFLUENZA B PATIENT NEGATIVE (NEGATIVE)
[2020-09-16] MEDS ORDERED: ENOXAPARIN 30 MG/0.3 ML SYRINGE. SQ ONE (22:30)
[2020-09-16] MEDS ORDERED: IV NORMAL SALINE 1000ML BAG 1,000 ML IV SCH (23:00)
[2020-09-17] VITALS (24 sets, daily range): BP systolic 139–200; BP diastolic 51–112
--- NOTE | 2020-09-17 00:16 | EKG ---
[facility] [address] [place] [address] Test Date: 2020-09-16 Test Time: 18:28:54 Pat Name: SANDRA BILLINGS Department: Room: Gender: F Etl Manager: : [id number] Requested By: BULMARO HARTMANN Order Number: [id number] Reading MD: Measurements Intervals [place] Rate: 107 P: -151 HI: 142 QRS: -176 QRSD: 84 T: 29 QT: 378 QTc: 504 Interpretive Statements SUPRAVENTRICULAR RHYTHM ABNORMAL RIGHT SUPERIOR AXIS DEVIATION R-S TRANSITION ZONE IN V LEADS DISPLACED TO THE RIGHT ABNORMAL ECG RI6.01 No previous ECG available for comparison
[2020-09-17] MEDS ORDERED: PIP/TAZO PER PHARMACY MC PRN (01:00)
--- NOTE | 2020-09-17 01:00 | NUR ---
Patient arrived to ICU room 113 from ED. Report received from AVA Pate, Reports labetolol will be given for elevated blood pressure. Insulin infusion. Room air. Vanco completed. No IVFs started at this time. Blood glucose due with glucostablizer. BMP last drawn in ED. Yanez in place. IVs intact but positional. Patient restless and unable to follow commands or be redirected. Nonverbal, obtunded. Opens eyes to pain. Moved over via drawsheet. DKA protocol in place. Hypertensive. Unknown if labetolol given. Will continue to monitor.
[2020-09-17] MEDS: VANCOMYCIN PER PHARMACY MC PRN (01:08)
--- NOTE | 2020-09-17 01:08 | NUR ---
Pharmacy Vancomycin Dosing Note S:Consulted to monitor and dose vancomycin started 09/16/20. O:SANDRA BILLINGS is a 80 year old F with Sepsis . Height: 5 feet, 4 inches Weight: 113.6 kg [place] Body Weight: 54.70 Adjusted Body Weight: 78.26 Dosing Weight: Actual Other Antibiotics: ZOSYN 2.25 GM Q6H LABS: Last BUN: 22 Last Creatinine: 1.9 Creatinine Clearance: 29.7 mL/min Last WBC: 24.4 Last Procalcitonin: Tmax (past 24 hours): Microbiology: I/O: Drug Levels: Last level: on at Last dose given 09/16/20 at 2200 Vancomycin Dosing: Loading Dose: 2000 mg x1 Dosing Weight: Actual Target Trough: 15-20 A: Based on: WT AND CRCL P: 1. Begin Vancomycin 1750 mg IV q24h 2. Follow up Trough level on 09/18/20 at 2130 3. Pharmacy will continue to monitor, follow and adjust therapy as needed. AARON ARTHUR RPH, 09/17/20 0108 Signed: 09/17/20 at 0109 by AARON ARTHUR RPH PHA
[2020-09-17] MEDS: LABETALOL 20 MG/4 ML DISP.SYRIN. IVP PRN (01:19)
[2020-09-17 01:31] LABS: CREATININE 1.9 mg/dL (0.6-1.0); GFR 30.9; MAGNESIUM 2.4 mg/dL (1.8-2.4); PHOSPHORUS 1.8 mg/dL (2.6-4.7); POTASSIUM 4.2 mmol/L (3.5-5.1)
[2020-09-17] MEDS ORDERED: IV DEXTROSE 5 %-0.45 % NACL 1,000 ML IV ONE (03:00)
[2020-09-17] MEDS ORDERED: SODIUM PHOSPHATE 40 MMOL in IV NORMAL SALINE 250ML 250 ML IV ONE (03:00)
[2020-09-17] MEDS: DEXMEDETOMIDINE 400 MCG in IV NORMAL SALINE 100ML 96 ML IV PRN ×3 (04:13→18:39)
[2020-09-17] MEDS ORDERED: IV NORMAL SALINE 500ML BAG 500 ML IV PRN (04:15)
[2020-09-17] MEDS ORDERED: ATROPINE 0.5 MG/5 ML DISP.SYRINGE. IV PRN (04:15)
--- NOTE | 2020-09-17 05:00 | NUR ---
Patient increased restlessness. Continued need to be repositioned in bed with legs hanging over side rail. Unable to be redirected. Dr. Phillips notified and order received for Precedex. Patient responds well by decreased agitation and is able to rest with eyes closed. Will continue to monitor.
[2020-09-17] MEDS: PIPERACILLIN/TAZOBACTAM 2.25 GM in IV NORMAL SALINE 50ML 50 ML IV SCH ×3 (08:55→18:35)
[2020-09-17] MEDS ORDERED: ENOXAPARIN 30 MG/0.3 ML SYRINGE. SQ SCH (10:00)
[2020-09-17 10:19] LABS: BASO % 0 % (0-3); EOS % 0 % (0-3); HEMATOCRIT 34.3 % (36.0-47.0); HEMOGLOBIN 11.6 g/dL (12.0-15.5); LYMPH % 13 % (24-48); MEAN CORPUSCULAR HEMOGLOBIN 29 pg (25-35); MEAN CORPUSCULAR HGB CONC 34 g/dL (31-37); MEAN CORPUSCULAR VOLUME 85 fL (79-100); MONO # 1.5 x10^3/uL (0.0-1.1); MONO % 10 % (0-9); NEUT # 11.4 x10^3/uL (1.8-7.7); NEUT % 77 % (31-73); PLATELET COUNT 217 x10^3/uL (140-400); RED BLOOD COUNT 4.05 x10^6/uL (3.50-5.40); RED CELL DISTRIBUTION WIDTH 14.7 % (11.5-14.5); WHITE BLOOD COUNT 14.8 x10^3/uL (4.0-11.0)
[2020-09-17 10:24] LABS: CALCIUM 8.2 mg/dL (8.5-10.1); CREATININE 1.4 mg/dL (0.6-1.0); GFR 43.9; MAGNESIUM 2.4 mg/dL (1.8-2.4); PHOSPHORUS 4.2 mg/dL (2.6-4.7)
[2020-09-17 10:30] LABS: POTASSIUM 2.9 mmol/L (3.5-5.1)
[2020-09-17] MEDS ORDERED: IV DEXTROSE 5 %-0.45 % NACL 1,000 ML IV SCH (10:45)
--- NOTE | 2020-09-17 10:58 | PDOC ---
[employer] PROGRESS NOTE Date of Service DOS: DATE: 09/17/20 TIME: 10:54 Chief Complaint Chief Complaint Sepsis, unclear etiology Acute DKA Lactic Acidosis AGMA MARISABEL due to vasomotor nephropathy Morbid Obesity Admit to ICU DKA protocol Continue IVF Strict I/O Monitor UOP F/u blood and Urine Cx Continue Vanc and Zosyn Lovenox for DVT prophylaxis History of Present Illness History of Present Illness 09/17/20 No acute events overnight. Improved mental status but requiring Precedex to control agitation. Elevated blood pressures. Anion gap is now closed. Patient's chart, labs, images were reviewed and discussed with RN 80 yo F PMH CAD 05/2021 (on AC), IDDM, HTN and morbid obesity, presents to the ed bibems, concern for altered mental status, found down, naked in her bedroom, not talking, by her daughter who she lives with. Patient was last known well at her baseline around 7 AM this morning where she was ambulatory, drinking coffee. Daughter reports patient is falling out of the bed that is only a few feet off the ground few times this week. No known history of DKA. Vitals/I&O Vitals/I&O: Vital Signs Date Time Temp Pulse Resp B/P (MAP) Pulse Ox O2 Delivery O2 Flow Rate FiO2 09/17/20 10:00 52 28 151/58 (89) 97 Room Air 09/17/20 08:00 98.7 98.7 I & O 09/16/20 09/16/20 09/17/20 15:00 23:00 07:00 Intake Total 2050 ml 1034.6 ml Balance 2050 ml 1034.6 ml Physical Exam General: mild distress, moderate distress Heart: Regular rate Abdomen: No tenderness Skin: No rashes, No significant lesion Labs Labs: Laboratory Tests Test 09/16/20 17:54 09/16/20 18:00 09/16/20 18:08 09/16/20 20:43 O2 Saturation 95 % (92-99) Arterial Blood pH 7.31 (7.35-7.45) Arterial Blood pCO2 at Patient Temp 31 mmHg (35-46) Arterial Blood pO2 at Patient Temp 82 mmHg (65-108) Arterial Blood HCO3 15 mmol/L (21-28) Arterial Blood Base Excess -10 mmol/L (-3-3) FiO2 Pt on ra White Blood Count 24.4 x10^3/uL (4.0-11.0) Red Blood Count 5.04 x10^6/uL (3.50-5.40) Hemoglobin 13.8 g/dL (12.0-15.5) Hematocrit 43.8 % (36.0-47.0) Mean Corpuscular Volume 87 fL (79-100) Mean Corpuscular Hemoglobin 27 pg (25-35) Mean Corpuscular Hemoglobin Concent 32 g/dL (31-37) Red Cell Distribution Width 15.0 % (11.5-14.5) Platelet Count 345 x10^3/uL (140-400) Neutrophils (%) (Auto) 93 % (31-73) Lymphocytes (%) (Auto) 4 % (24-48) Monocytes (%) (Auto) 3 % (0-9) Eosinophils (%) (Auto) 0 % (0-3) Basophils (%) (Auto) 0 % (0-3) Neutrophils # (Auto) 22.8 x10^3/uL (1.8-7.7) Lymphocytes # (Auto) 0.9 x10^3/uL (1.0-4.8) Monocytes # (Auto) 0.7 x10^3/uL (0.0-1.1) Eosinophils # (Auto) 0.0 x10^3/uL (0.0-0.7) Basophils # (Auto) 0.0 x10^3/uL (0.0-0.2) Segmented Neutrophils % 91 % (35-66) Band Neutrophils % 3 % (0-9) Lymphocytes % 3 % (24-48) Monocytes % 3 % (0-10) Platelet Estimate Adequate (ADEQUATE) Prothrombin Time 14.9 SEC (11.7-14.0) Prothromb Time International Ratio 1.2 (0.8-1.1) Activated Partial Thromboplast Time 24 SEC (24-38) D-Dimer (Ivory) 1.25 ug/mlFEU (0.00-0.50) Urine Collection Type Unknown Urine Color Yellow Urine Clarity Cloudy Urine pH 5.0 (<5.0-8.0) Urine Specific Henrietta >=1.030 (1.000-1.030) Urine Protein >=300 mg/dL (NEG-TRACE) Urine Glucose (UA) >=1000 mg/dL (NEG) Urine Ketones (Stick) 15 mg/dL (NEG) Urine Blood Large (NEG) Urine Nitrite Negative (NEG) Urine Bilirubin Negative (NEG) Urine Urobilinogen Dipstick 0.2 mg/dL (0.2 mg/dL) Urine Leukocyte Esterase Negative (NEG) Urine RBC Tntc /HPF (0-2) Urine WBC 11-20 /HPF (0-4) Urine Squamous Epithelial Cells Few /LPF Urine Amorphous Sediment Present /HPF Urine Bacteria Few /HPF (0-FEW) Urine Cellular Casts Occ /HPF Urine Hyaline Casts Occasional /HPF Urine Mucus Slight /LPF Sodium Level 135 mmol/L (136-145) Potassium Level 4.7 mmol/L (3.5-5.1) Chloride Level 96 mmol/L (98-107) Carbon Dioxide Level 19 mmol/L (21-32) Anion Gap 20 (6-14) Blood Urea Nitrogen 22 mg/dL (7-20) Creatinine 1.9 mg/dL (0.6-1.0) Estimated GFR (Cockcroft-Gault) 30.9 Glucose Level 789 mg/dL (70-99) Lactic Acid Level 6.7 mmol/L (0.4-2.0) Calcium Level 9.6 mg/dL (8.5-10.1) Magnesium Level 2.7 mg/dL (1.8-2.4) Total Bilirubin 0.4 mg/dL (0.2-1.0) Direct Bilirubin 0.1 mg/dL (0.0-0.2) Aspartate Amino Transf (AST/SGOT) 23 U/L (15-37) Alanine Aminotransferase (ALT/SGPT) 30 U/L (14-59) Alkaline Phosphatase 123 U/L (46-116) Creatine Kinase 403 U/L (26-192) Troponin I Quantitative < 0.017 ng/mL (0.000-0.055) SZ-Wjl-M-Type Natriuretic Peptide 1358 pg/mL (0-449) Total Protein 8.2 g/dL (6.4-8.2) Albumin 3.6 g/dL (3.4-5.0) Thyroid Stimulating Hormone (TSH) 0.774 uIU/mL (0.358-3.74) Salicylates Level < 2.8 mg/dL (2.8-20.0) Salicylate Last Dose Date Unknown Salicylate Last Dose Time Unknown Urine Opiates Screen Neg (NEG) Urine Methadone Screen Neg (NEG) Acetaminophen Level < 2 mcg/ml (10-30) Acetaminophen Last Dose Date Unknown Acetaminophen Last Dose Time Unknown Urine Barbiturates Neg (NEG) Urine Phencyclidine Screen Neg (NEG) Urine Amphetamine/Methamphetamine Neg (NEG) Urine Benzodiazepines Screen Neg (NEG) Urine Cocaine Screen Neg (NEG) Urine Cannabinoids Screen Neg (NEG) Urine Ethyl Alcohol Neg (NEG) Acetone Level Neg (NEG) Influenza Type A Antigen Negative (NEGATIVE) Influenza Type B Antigen Negative (NEGATIVE) Glucose (Fingerstick) 557 mg/dL (70-99) Test 09/16/20 21:52 09/16/20 22:00 09/16/20 22:55 09/17/20 00:12 Glucose (Fingerstick) 509 mg/dL (70-99) 410 mg/dL (70-99) 343 mg/dL (70-99) Lactic Acid Level 3.2 mmol/L (0.4-2.0) Test 09/17/20 00:45 09/17/20 01:29 09/17/20 02:36 09/17/20 03:40 Sodium Level 142 mmol/L (136-145) Potassium Level 4.2 mmol/L (3.5-5.1) Chloride Level 107 mmol/L (98-107) Carbon Dioxide Level 17 mmol/L (21-32) Anion Gap 18 (6-14) Blood Urea Nitrogen 21 mg/dL (7-20) Creatinine 1.9 mg/dL (0.6-1.0) Estimated GFR (Cockcroft-Gault) 30.9 Glucose Level 330 mg/dL (70-99) Calcium Level 9.0 mg/dL (8.5-10.1) Phosphorus Level 1.8 mg/dL (2.6-4.7) Magnesium Level 2.4 mg/dL (1.8-2.4) Glucose (Fingerstick) 294 mg/dL (70-99) 181 mg/dL (70-99) 158 mg/dL (70-99) Test 09/17/20 04:44 09/17/20 05:45 09/17/20 06:54 09/17/20 07:57 Glucose (Fingerstick) 193 mg/dL (70-99) 177 mg/dL (70-99) 159 mg/dL (70-99) 122 mg/dL (70-99) Test 09/17/20 08:51 09/17/20 09:30 09/17/20 09:57 Glucose (Fingerstick) 135 mg/dL (70-99) 150 mg/dL (70-99) White Blood Count 14.8 x10^3/uL (4.0-11.0) Red Blood Count 4.05 x10^6/uL (3.50-5.40) Hemoglobin 11.6 g/dL (12.0-15.5) Hematocrit 34.3 % (36.0-47.0) Mean Corpuscular Volume 85 fL (79-100) Mean Corpuscular Hemoglobin 29 pg (25-35) Mean Corpuscular Hemoglobin Concent 34 g/dL (31-37) Red Cell Distribution Width 14.7 % (11.5-14.5) Platelet Count 217 x10^3/uL (140-400) Neutrophils (%) (Auto) 77 % (31-73) Lymphocytes (%) (Auto) 13 % (24-48) Monocytes (%) (Auto) 10 % (0-9) Eosinophils (%) (Auto) 0 % (0-3) Basophils (%) (Auto) 0 % (0-3) Neutrophils # (Auto) 11.4 x10^3/uL (1.8-7.7) Lymphocytes # (Auto) 2.0 x10^3/uL (1.0-4.8) Monocytes # (Auto) 1.5 x10^3/uL (0.0-1.1) Eosinophils # (Auto) 0.0 x10^3/uL (0.0-0.7) Basophils # (Auto) 0.0 x10^3/uL (0.0-0.2) Sodium Level 146 mmol/L (136-145) Potassium Level 2.9 mmol/L (3.5-5.1) Chloride Level 111 mmol/L (98-107) Carbon Dioxide Level 23 mmol/L (21-32) Anion Gap 12 (6-14) Blood Urea Nitrogen 18 mg/dL (7-20) Creatinine 1.4 mg/dL (0.6-1.0) Estimated GFR (Cockcroft-Gault) 43.9 Glucose Level 136 mg/dL (70-99) Calcium Level 8.2 mg/dL (8.5-10.1) Phosphorus Level 4.2 mg/dL (2.6-4.7) Magnesium Level 2.4 mg/dL (1.8-2.4) Assessment and Plan Assessmemt and Plan Problems Medical Problems: (1) AMS (altered mental status) Status: Acute Comment Review of Relevant I have reviewed the following items karina (where applicable) has been applied. Medications: Current Medications Medications (Trade) Dose Ordered Sig/Jose Alejandro Route PRN Reason Start Time Stop Time Status Last Admin Dose Admin Haloperidol Lactate (Haldol Inj) 5 mg 1X ONCE IVP 09/16/20 17:30 09/16/20 18:41 DC 09/16/20 17:30 Haloperidol Lactate (Haldol Inj) 5 mg 1X ONCE IVP 09/16/20 17:50 09/16/20 18:41 DC 09/16/20 17:50 Sodium Chloride 1,000 ml @ 1,000 mls/hr 1X ONCE IV 09/16/20 17:30 09/16/20 18:44 DC 09/16/20 17:50 Nitroglycerin (Nitro-Bid Oint) 1 inch 1X ONCE TP 09/16/20 19:00 09/16/20 19:01 DC 09/16/20 18:48 Midazolam HCl (Versed) 2 mg 1X ONCE NS 09/16/20 19:00 09/16/20 19:01 DC 09/16/20 19:17 Insulin Human Regular 100 ml @ 0 mls/hr 1X ONCE IV 09/16/20 19:30 09/16/20 19:31 DC 09/16/20 20:51 Sodium Chloride 1,000 ml @ 1,000 mls/hr 1X ONCE IV 09/16/20 19:30 09/16/20 20:29 DC 09/16/20 20:08 Iohexol (Omnipaque 350 Mg/ml) 80 ml 1X ONCE IV 09/16/20 20:00 09/16/20 20:01 DC 09/16/20 20:03 Piperacillin Sod/ Tazobactam Sod 3.375 gm/Sodium Chloride 50 ml @ 100 mls/hr 1X ONCE IV 09/16/20 22:00 09/16/20 22:29 DC 09/16/20 22:15 Ceftriaxone Sodium (Rocephin) 2 gm 1X ONCE IVP 09/16/20 21:30 09/16/20 21:31 DC 09/16/20 22:02 Vancomycin HCl 2 gm/Sodium Chloride 500 ml @ 250 mls/hr 1X ONCE IV 09/16/20 22:00 09/16/20 23:59 DC 09/16/20 22:04 Vancomycin HCl (Vanco Per Pharmacy) 1 each PRN DAILY PRN MC SEE COMMENTS 09/16/20 21:15 09/17/20 01:08 Sodium Chloride 1,000 ml @ 250 mls/hr Q4H IV 09/16/20 23:00 09/17/20 02:43 DC 09/17/20 01:32 Insulin Human Regular 100 unit/ Sodium Chloride 101 ml @ 0 mls/hr CONT PRN PRN IV PER PROTOCOL 09/16/20 21:30 09/17/20 04:00 Labetalol HCl (Normodyne Iv Push) 20 mg PRN Q2HRS PRN IVP HYPERTENSION 09/16/20 22:00 09/17/20 01:19 Enoxaparin Sodium (Lovenox 30mg Syringe) 30 mg 1X ONCE SQ 09/16/20 22:30 09/16/20 22:31 DC 09/16/20 22:56 Piperacillin Sod/ Tazobactam Sod 2.25 gm/Sodium Chloride 50 ml @ 100 mls/hr Q6HRS IV 09/17/20 06:00 09/17/20 08:55 Sodium Phosphate 40 mmol/Sodium Chloride 263.3333 ml @ 62.5 mls/hr 1X ONCE IV 09/17/20 03:00 09/17/20 07:12 DC 09/17/20 02:48 Dextrose/Sodium Chloride 1,000 ml @ 250 mls/hr 1X ONCE IV 09/17/20 03:00 09/17/20 06:59 DC 09/17/20 02:47 Dexmedetomidine HCl 400 mcg/ Sodium Chloride 100 ml @ 0 mls/hr CONT PRN IV PER PROTOCOL 09/17/20 04:15 09/17/20 08:55 Justifications for Admission Other Justification SEPSIS ILANA COYLE MD Sep 17, 2020 10:58
[2020-09-17] MEDS ORDERED: DEXTROSE 50% 25 GM / 50ML DISP.SYRIN. IV PRN (11:00)
[2020-09-17] MEDS ORDERED: POTASSIUM CHLORIDE 10MEQ 100 ML IV PRN (11:00)
--- NOTE | 2020-09-17 11:12 | NUR ---
SS following for discharge planning. SS reviewed pt chart and discussed with pt RN. Pt is from home and is currently on room air. COVID19 pending. Pt on IV Zosyn and IV Vancomycin. SS will continue to follow for discharge planning.
[2020-09-17] MEDS: POTASSIUM CHLORIDE 10MEQ 100 ML IV PRN ×6 (11:52→20:58)
[2020-09-17] MEDS: INSULIN LISPRO 300 UNITS/3 ML VIAL. SQ SCH ×3 (12:00→22:17)
[2020-09-17] MEDS ORDERED: INSULIN LISPRO 300 UNITS/3 ML VIAL. SQ SCH (12:00)
[2020-09-17] MEDS: INSULIN GLARGINE SYRINGE. SQ SCH ×2 (12:18→21:24)
[2020-09-17] MEDS: IV 1/2 NORMAL SALINE 1,000 ML IV SCH (16:36)
[2020-09-17] MEDS ORDERED: PIPERACILLIN/TAZOBACTAM 3.375 GM in IV NORMAL SALINE 50ML 50 ML IV SCH (18:00)
--- NOTE | 2020-09-17 18:00 | RAD ---
AP chest. HISTORY: PICC line placement AP view was taken of the chest. There is a left arm PICC line which extends to the superior vena cava . Heart is upper normal in size. Patient's taken a poor inspiration. There is no effusion. There are no acute infiltrates. IMPRESSION: 1. Left PICC line extends to the superior vena cava in good position. Electronically signed by: Navneet Flores MD (09/17/2020 5:58 PM) [id number]
[2020-09-17] MEDS: PANTOPRAZOLE IV PUSH 40 MG VIAL. IVP SCH (18:36)
[2020-09-17] MEDS: VANCOMYCIN 1.75 GM in IV NORMAL SALINE 500ML BAG 500 ML IV SCH (21:25)
[2020-09-18] VITALS (17 sets, daily range): BP systolic 155–193; BP diastolic 57–89
[2020-09-18] MEDS: PIPERACILLIN/TAZOBACTAM 2.25 GM in IV NORMAL SALINE 50ML 50 ML IV SCH ×2 (01:11→06:23)
[2020-09-18] MEDS: IV 1/2 NORMAL SALINE 1,000 ML IV SCH ×4 (01:12→22:37)
[2020-09-18] MEDS: INSULIN LISPRO 300 UNITS/3 ML VIAL. SQ SCH ×7 (04:00→21:00)
[2020-09-18 06:32] LABS: BASO # 0.1 x10^3/uL (0.0-0.2); BASO % 1 % (0-3); EOS % 1 % (0-3); HEMATOCRIT 35.4 % (36.0-47.0); HEMOGLOBIN 11.8 g/dL (12.0-15.5); LYMPH # 2.4 x10^3/uL (1.0-4.8); LYMPH % 25 % (24-48); MEAN CORPUSCULAR HEMOGLOBIN 28 pg (25-35); MEAN CORPUSCULAR HGB CONC 33 g/dL (31-37); MEAN CORPUSCULAR VOLUME 84 fL (79-100); MONO # 0.6 x10^3/uL (0.0-1.1); MONO % 7 % (0-9); NEUT # 6.7 x10^3/uL (1.8-7.7); NEUT % 68 % (31-73); PLATELET COUNT 195 x10^3/uL (140-400); RED CELL DISTRIBUTION WIDTH 15.1 % (11.5-14.5); WHITE BLOOD COUNT 9.9 x10^3/uL (4.0-11.0)
[2020-09-18 06:37] LABS: ALBUMIN 2.3 g/dL (3.4-5.0); ALBUMIN/GLOBULIN RATIO 0.7 (1.0-1.7); CALCIUM 7.5 mg/dL (8.5-10.1); CREATININE 1.1 mg/dL (0.6-1.0); MAGNESIUM 1.8 mg/dL (1.8-2.4); PHOSPHORUS 2.8 mg/dL (2.6-4.7); POTASSIUM 3.8 mmol/L (3.5-5.1); TOTAL BILIRUBIN 0.5 mg/dL (0.2-1.0); TOTAL PROTEIN 5.8 g/dL (6.4-8.2)
[2020-09-18] MEDS: PANTOPRAZOLE IV PUSH 40 MG VIAL. IVP SCH (08:04)
[2020-09-18] MEDS: VANCOMYCIN PER PHARMACY MC PRN ×2 (08:38→23:24)
[2020-09-18] MEDS: LABETALOL 20 MG/4 ML DISP.SYRIN. IVP PRN ×3 (09:26→20:48)
--- NOTE | 2020-09-18 11:15 | PDOC ---
[employer] PROGRESS NOTE Date of Service DOS: DATE: 09/18/20 TIME: 11:12 Chief Complaint Chief Complaint Sepsis, unclear etiology Acute DKAimproved Lactic Acidosis AGMA MARISABEL due to vasomotor nephropathy Morbid Obesity Admit to ICU DKA protocol Continue IVF Strict I/O Monitor UOP F/u blood and Urine Cx Continue Vanc and Zosyn Lovenox for DVT prophylaxis History of Present Illness History of Present Illness 09/18/2020 No acute events overnight. Afebrile. Blood and urine cultures have so far returned negative. Currently on empiric IV antibiotics. Improved mental status without any sedation. Patient is alert and awake but still disoriented. Moving all extremities at this time. Anion gap is still closed. Glucose levels ranging between 140s to 150s. Pending speech evaluation. Continue IV fluids. Patient's chart, labs, images were reviewed and discussed with RN 09/17/20 No acute events overnight. Improved mental status but requiring Precedex to control agitation. Elevated blood pressures. Anion gap is now closed. Misha fine's chart, labs, images were reviewed and discussed with RN 80 yo F PMH CAD 05/2021 (on AC), IDDM, HTN and morbid obesity, presents to the ed bibems, concern for altered mental status, found down, naked in her bedroom, not talking, by her daughter who she lives with. Patient was last known well at her baseline around 7 AM this morning where she was ambulatory, drinking coffee. Daughter reports patient is falling out of the bed that is only a few feet off the ground few times this week. No known history of DKA. Vitals/I&O Vitals/I&O: Vital Signs Date Time Temp Pulse Resp B/P (MAP) Pulse Ox O2 Delivery O2 Flow Rate FiO2 09/18/20 11:00 56 18 173/65 (101) Room Air 09/18/20 10:00 99 09/18/20 08:00 98.6 98.6 I & O 09/17/20 09/17/20 09/18/20 15:00 23:00 07:00 Intake Total 157.12 ml 3511 ml 2426.9 ml Output Total 410 ml 815 ml 605 ml Balance -252.88 ml 2696 ml 1821.9 ml Physical Exam General: Alert, Cooperative Heart: Regular rate Abdomen: No tenderness Extremities: No edema Skin: No rashes, No significant lesion Labs Labs: Laboratory Tests Test 09/17/20 12:07 09/17/20 13:07 09/17/20 14:54 09/17/20 17:27 Glucose (Fingerstick) 134 mg/dL (70-99) 137 mg/dL (70-99) 170 mg/dL (70-99) 257 mg/dL (70-99) Test 09/17/20 22:04 09/18/20 01:18 09/18/20 06:00 09/18/20 06:13 Glucose (Fingerstick) 208 mg/dL (70-99) 142 mg/dL (70-99) 157 mg/dL (70-99) White Blood Count 9.9 x10^3/uL (4.0-11.0) Red Blood Count 4.20 x10^6/uL (3.50-5.40) Hemoglobin 11.8 g/dL (12.0-15.5) Hematocrit 35.4 % (36.0-47.0) Mean Corpuscular Volume 84 fL (79-100) Mean Corpuscular Hemoglobin 28 pg (25-35) Mean Corpuscular Hemoglobin Concent 33 g/dL (31-37) Red Cell Distribution Width 15.1 % (11.5-14.5) Platelet Count 195 x10^3/uL (140-400) Neutrophils (%) (Auto) 68 % (31-73) Lymphocytes (%) (Auto) 25 % (24-48) Monocytes (%) (Auto) 7 % (0-9) Eosinophils (%) (Auto) 1 % (0-3) Basophils (%) (Auto) 1 % (0-3) Neutrophils # (Auto) 6.7 x10^3/uL (1.8-7.7) Lymphocytes # (Auto) 2.4 x10^3/uL (1.0-4.8) Monocytes # (Auto) 0.6 x10^3/uL (0.0-1.1) Eosinophils # (Auto) 0.0 x10^3/uL (0.0-0.7) Basophils # (Auto) 0.1 x10^3/uL (0.0-0.2) Sodium Level 140 mmol/L (136-145) Potassium Level 3.8 mmol/L (3.5-5.1) Chloride Level 110 mmol/L (98-107) Carbon Dioxide Level 22 mmol/L (21-32) Anion Gap 8 (6-14) Blood Urea Nitrogen 9 mg/dL (7-20) Creatinine 1.1 mg/dL (0.6-1.0) Estimated GFR (Cockcroft-Gault) 58.0 BUN/Creatinine Ratio 8 (6-20) Glucose Level 144 mg/dL (70-99) Calcium Level 7.5 mg/dL (8.5-10.1) Phosphorus Level 2.8 mg/dL (2.6-4.7) Magnesium Level 1.8 mg/dL (1.8-2.4) Total Bilirubin 0.5 mg/dL (0.2-1.0) Aspartate Amino Transf (AST/SGOT) 52 U/L (15-37) Alanine Aminotransferase (ALT/SGPT) 28 U/L (14-59) Alkaline Phosphatase 75 U/L (46-116) Total Protein 5.8 g/dL (6.4-8.2) Albumin 2.3 g/dL (3.4-5.0) Albumin/Globulin Ratio 0.7 (1.0-1.7) Test 09/18/20 08:01 Glucose (Fingerstick) 154 mg/dL (70-99) Assessment and Plan Assessmemt and Plan Problems Medical Problems: (1) AMS (altered mental status) Status: Acute Comment Review of Relevant I have reviewed the following items karina (where applicable) has been applied. Medications: Current Medications Medications (Trade) Dose Ordered Sig/Jose Alejandro Route PRN Reason Start Time Stop Time Status Last Admin Dose Admin Vancomycin HCl 1.75 gm/Sodium Chloride 500 ml @ 250 mls/hr Q24H IV 09/17/20 22:00 09/17/20 21:25 Pantoprazole Sodium (PROTONIX VIAL for IV PUSH) 40 mg DAILYAC IVP 09/17/20 11:30 09/18/20 08:04 Insulin Human Lispro (HumaLOG) 0-9 UNITS Q4HRS SQ 09/17/20 12:00 09/18/20 09:48 DC 09/17/20 22:17 Sodium Chloride 1,000 ml @ 150 mls/hr Q6H40M IV 09/17/20 16:00 09/18/20 06:30 Piperacillin Sod/ Tazobactam Sod 2.25 gm/Sodium Chloride 50 ml @ 100 mls/hr Q6HRS IV 09/17/20 18:00 09/18/20 08:34 DC 09/18/20 06:23 Justifications for Admission Other Justification SEPSIS ILANA COYLE MD Sep 18, 2020 11:15
[2020-09-18] MEDS: ENOXAPARIN 40 MG/0.4 ML SYRINGE. SQ SCH (11:49)
[2020-09-18] MEDS: INSULIN GLARGINE SYRINGE. SQ SCH ×2 (11:49→20:59)
[2020-09-18] MEDS: PIPERACILLIN/TAZOBACTAM 3.375 GM in IV NORMAL SALINE 50ML 50 ML IV SCH ×3 (11:49→23:37)
[2020-09-18] MEDS ORDERED: CITA10TA4 PO (12:07)
[2020-09-18] MEDS ORDERED: BRIM5DRO4 EACHEYE (12:13)
[2020-09-18] MEDS: BRIMONIDINE 0.2% OPHTH SOLUTION 5ML BOTTLE. OU SCH ×2 (12:51→20:59)
[2020-09-18] MEDS: PRASUGREL 10 MG TABLET. PO SCH (12:51)
[2020-09-18] MEDS: ISOSORBIDE MONONITRATE ER 30 MG TAB.ER.24H PO SCH (12:51)
[2020-09-18] MEDS: ASPIRIN CHEWABLE 81 MG TABLET. PO SCH (13:00)
[2020-09-18] MEDS ORDERED: ASPIRIN 325 MG TABLET PO SCH (13:00)
[2020-09-18] MEDS ORDERED: GABAPENTIN 300 MG CAPSULE. PO SCH (14:00)
--- NOTE | 2020-09-18 14:50 | NUR ---
Patient to transfer to room 432. Telephone report given to Liv Oropeza. This nurse to transfer patient up via wheelchair.
[2020-09-18] MEDS: ATORVASTATIN CALCIUM 40 MG TABLET. PO SCH (20:47)
[2020-09-18] MEDS: LACTOBACILLUS RHAMNOSUS GG 1 CAPSULE. PO SCH (20:47)
[2020-09-18] MEDS ORDERED: NON FORMULARY ITEM (Brimonidine Tartrate (Alphagan P) 1 DROP) OU SCH (21:00)
[2020-09-18] MEDS: LATANOPROST 0.005% OPHTH SOLUTION 2.5ML BOTTLE. OU SCH (21:00)
[2020-09-18 22:29] LABS: VANC TR 14.9 mcg/mL (10.0-20.0)
[2020-09-18] MEDS: VANCOMYCIN 1.75 GM in IV NORMAL SALINE 500ML BAG 500 ML IV SCH (23:03)
--- NOTE | 2020-09-18 23:24 | NUR ---
Pharmacy Vancomycin Dosing Note S:Consulted to monitor and dose vancomycin started 09/16/20. O:SANDRA BILLINGS is a 80 year old F with Sepsis Empiric . Height: 5 feet, 4 inches Weight: 94.0 kg [place] Body Weight: 54.70 Adjusted Body Weight: 70.42 Dosing Weight: Actual Other Antibiotics: ZOSYN 3.375 GM Q6H LABS: Last BUN: 9 Last Creatinine: 1.1 Creatinine Clearance: 46 mL/min Last WBC: 9.9 Last Procalcitonin: Tmax (past 24 hours): 98.6 Microbiology: 09/16 Blood: no growth to date I/O: 6095/1830 Drug Levels: Last Trough level: 14.9 on 09/18/20 at 2130 Last dose given 09/17/20 at 2200 Vancomycin Dosing: Loading Dose: 2000 mg x1 Dosing Weight: Actual Target Trough: 15-20 A: Based on: TROUGH P: 1. Continue Vancomycin 1750 mg IV q24h 2. Follow up Trough level IF NEEDED 3. Pharmacy will continue to monitor, follow and adjust therapy as needed. AARON ARTHUR RPH, 09/18/20 2324 Signed: 09/18/20 at 2324 by AARON ARTHUR RPH PHA
[2020-09-19] VITALS (9 sets, daily range): BP systolic 128–224; BP diastolic 62–91
[2020-09-19] MEDS: LABETALOL 20 MG/4 ML DISP.SYRIN. IVP PRN ×3 (02:42→21:52)
[2020-09-19] MEDS: PANTOPRAZOLE IV PUSH 40 MG VIAL. IVP SCH (06:03)
[2020-09-19] MEDS: PIPERACILLIN/TAZOBACTAM 3.375 GM in IV NORMAL SALINE 50ML 50 ML IV SCH ×4 (06:03→23:56)
[2020-09-19] MEDS: IV 1/2 NORMAL SALINE 1,000 ML IV SCH ×2 (07:37→16:44)
[2020-09-19] MEDS: ISOSORBIDE MONONITRATE ER 30 MG TAB.ER.24H PO SCH (09:07)
[2020-09-19] MEDS: BRIMONIDINE 0.2% OPHTH SOLUTION 5ML BOTTLE. OU SCH ×2 (09:07→21:39)
[2020-09-19] MEDS: ASPIRIN CHEWABLE 81 MG TABLET. PO SCH (09:07)
[2020-09-19] MEDS: LACTOBACILLUS RHAMNOSUS GG 1 CAPSULE. PO SCH ×2 (09:07→19:31)
[2020-09-19] MEDS: PRASUGREL 10 MG TABLET. PO SCH (09:08)
[2020-09-19] MEDS: INSULIN LISPRO 300 UNITS/3 ML VIAL. SQ SCH ×4 (09:14→21:00)
[2020-09-19] MEDS: INSULIN GLARGINE SYRINGE. SQ SCH ×2 (09:15→21:42)
--- NOTE | 2020-09-19 11:53 | PDOC ---
[employer] PROGRESS NOTE Date of Service DOS: DATE: 09/19/20 TIME: 11:49 Chief Complaint Chief Complaint Sepsis, unclear etiology Acute DKA Lactic Acidosis AGMA MARISABEL due to vasomotor nephropathy Morbid Obesity Asthma, Diabetes-Type II, Hypertension, Renal Failure, Appendectomy, Hysterectomy, History of nephrostomy tube History of Present Illness History of Present Illness 09/18/2020 No acute events overnight. Afebrile. Blood and urine cultures have so far returned negative. Currently on empiric IV antibiotics. Improved mental status without any sedation. Patient is alert and awake but still disoriented. Moving all extremities at this time. Anion gap is still closed. Glucose levels ranging between 140s to 150s. Pending speech evaluation. Continue IV fluids. Patient's chart, labs, images were reviewed and discussed with RN 09/17/20 No acute events overnight. Improved mental status but requiring Precedex to control agitation. Elevated blood pressures. Anion gap is now closed. Patient's chart, labs, images were reviewed and discussed with RN 80 yo F PM CAD 05/2021 (on ), IDDM, HTN and morbid obesity, presents to the ed bibems, concern for altered mental status, found down, naked in her bedroom, not talking, by her daughter who she lives with. Patient was last known well at her baseline around 7 AM this morning where she was ambulatory, drinking coffee. Daughter reports patient is falling out of the bed that is only a few feet off the ground few times this week. No known history of DKA. 09/19/2020 -Patient seen and examined at bedside -Anion gap closed at 8 -Dw RN -Chart reviewed -Beau to DILEEP Vitals/I&O Vitals/I&O: Vital Signs Date Time Temp Pulse Resp B/P (MAP) Pulse Ox O2 Delivery O2 Flow Rate FiO2 09/19/20 11:00 98.0 62 18 132/78 (96) 100 Room Air 98.0 I & O 09/18/20 09/18/20 09/19/20 15:00 23:00 07:00 Intake Total 560 ml 2380 ml 550 ml Output Total 525 ml 100 ml 1850 ml Balance 35 ml 2280 ml -1300 ml Physical Exam General: Alert, Cooperative Heart: Regular rate Lungs: Clear Abdomen: No tenderness Extremities: No edema Skin: No rashes, No significant lesion Labs Labs: Laboratory Tests Test 09/18/20 15:52 09/18/20 20:30 09/18/20 22:00 09/19/20 07:22 Glucose (Fingerstick) 209 mg/dL (70-99) 203 mg/dL (70-99) 172 mg/dL (70-99) Vancomycin Level Trough 14.9 mcg/mL (10.0-20.0) Vancomycin Last Dose Date 09/17/20 Vancomycin Last Dose Time 2200 Test 09/19/20 11:44 Glucose (Fingerstick) 210 mg/dL (70-99) Review of Systems Review of Systems: Denies CP. Denies SOB. Assessment and Plan Assessmemt and Plan Problems Medical Problems: (1) AMS (altered mental status) Status: Acute Sepsis, unclear etiology Acute DKA Lactic Acidosis AGMA MARISABEL due to vasomotor nephropathy Morbid Obesity Asthma, Diabetes-Type II, Hypertension, Renal Failure, Appendectomy, Hysterectomy, History of nephrostomy tube Plan 1 Continue Vancomycin and Zosyn 2 IVF 3 Yanez to BSD 4 Trend labs 5 Insulin 6 Strict I/O 7 Follow blood culture 8 DVT prophylaxis 9 Home meds Comment Review of Relevant I have reviewed the following items karina (where applicable) has been applied. Medications: Current Medications Medications (Trade) Dose Ordered Sig/Jose Alejandro Route PRN Reason Start Time Stop Time Status Last Admin Dose Admin Vancomycin HCl (Vancomycin Trough Level) 1 each 1X ONCE MC 09/18/20 21:30 09/18/20 21:31 DC 09/18/20 21:30 Piperacillin Sod/ Tazobactam Sod 3.375 gm/Sodium Chloride 50 ml @ 100 mls/hr Q6HRS IV 09/18/20 12:00 09/19/20 06:03 Amlodipine Besylate (Norvasc) 5 mg BID PO 09/18/20 13:00 09/19/20 09:07 Atorvastatin Calcium (Lipitor) 40 mg QHS PO 09/18/20 21:00 09/18/20 20:47 Brimonidine Tartrate (Alphagan) 1 drop BID OU 09/18/20 13:00 09/19/20 09:07 Latanoprost (Xalatan) 1 drop QHS OU 09/18/20 21:00 09/18/20 21:00 Prasugrel (Effient) 10 mg DAILYWBKFT PO 09/18/20 13:00 09/19/20 09:08 Isosorbide Mononitrate (Imdur) 120 mg DAILY PO 09/18/20 13:00 09/19/20 09:07 Insulin Human Lispro (HumaLOG) 0-9 UNITS QIDACHS SQ 09/18/20 16:30 09/19/20 09:14 Aspirin (Aspirin Chewable) 81 mg DAILYWBKFT PO 09/18/20 13:00 09/19/20 09:07 Lactobacillus Rhamnosus (Culturelle) 1 cap BID PO 09/18/20 21:00 09/19/20 09:07 Justifications for Admission Other Justification SEPSIS CONCEPCIÓN HORN III DO Sep 19, 2020 11:53
[2020-09-19] MEDS: VANCOMYCIN PER PHARMACY MC PRN (12:00)
[2020-09-19] MEDS: ENOXAPARIN 40 MG/0.4 ML SYRINGE. SQ SCH (12:18)
[2020-09-19] MEDS: ATORVASTATIN CALCIUM 40 MG TABLET. PO SCH (19:31)
[2020-09-19] MEDS: LATANOPROST 0.005% OPHTH SOLUTION 2.5ML BOTTLE. OU SCH (21:39)
[2020-09-19] MEDS: VANCOMYCIN 1.75 GM in IV NORMAL SALINE 500ML BAG 500 ML IV SCH (22:31)
[2020-09-20] VITALS (8 sets, daily range): BP systolic 168–218; BP diastolic 52–82
[2020-09-20] MEDS: LISINOPRIL 20 MG TABLET PO SCH ×2 (00:23→20:54)
[2020-09-20] MEDS: LABETALOL 20 MG/4 ML DISP.SYRIN. IVP PRN ×4 (01:13→22:43)
--- NOTE | 2020-09-20 01:16 | NUR ---
Dr Phillips contacted and updated with patient's high blood pressure, new order received ,POC resumed, will continue top monitor.
[2020-09-20] MEDS: PIPERACILLIN/TAZOBACTAM 3.375 GM in IV NORMAL SALINE 50ML 50 ML IV SCH ×3 (05:24→17:03)
[2020-09-20 05:25] LABS: BASO % 1 % (0-3); EOS # 0.2 x10^3/uL (0.0-0.7); EOS % 2 % (0-3); HEMATOCRIT 34.4 % (36.0-47.0); HEMOGLOBIN 11.4 g/dL (12.0-15.5); LYMPH # 1.9 x10^3/uL (1.0-4.8); LYMPH % 24 % (24-48); MEAN CORPUSCULAR HEMOGLOBIN 28 pg (25-35); MEAN CORPUSCULAR HGB CONC 33 g/dL (31-37); MEAN CORPUSCULAR VOLUME 85 fL (79-100); MONO # 0.6 x10^3/uL (0.0-1.1); MONO % 8 % (0-9); NEUT # 5.4 x10^3/uL (1.8-7.7); NEUT % 66 % (31-73); PLATELET COUNT 223 x10^3/uL (140-400); RED BLOOD COUNT 4.06 x10^6/uL (3.50-5.40); WHITE BLOOD COUNT 8.1 x10^3/uL (4.0-11.0)
[2020-09-20] MEDS: PANTOPRAZOLE IV PUSH 40 MG VIAL. IVP SCH (05:25)
[2020-09-20] MEDS: IV 1/2 NORMAL SALINE 1,000 ML IV SCH ×2 (05:42→13:28)
[2020-09-20 05:45] LABS: CALCIUM 8.5 mg/dL (8.5-10.1); CREATININE 1.2 mg/dL (0.6-1.0); GFR 52.4
[2020-09-20] MEDS: INSULIN LISPRO 300 UNITS/3 ML VIAL. SQ SCH ×4 (08:49→21:01)
--- NOTE | 2020-09-20 10:55 | NUR ---
SW following. Discussed with RN, pt from home alone, room air, cardiac diet, COVID-19 negative. PT/OT recommending SNF. SW met with pt (no isolation precautions at the time), pt seemed like she may not have been understanding SNF discussion. Pt gave SW permission to contact her daughters Elliot (ph: [phone]) and Kerri (ph: [phone]). Line busy when KAYLA tried to call [facility], left voicemail for Kerri. KAYLA will continue to follow. Addendum: 09/20/20 at 1401 by ADOLFO GARZA SW attempted to contact pt's daughters again. Left voicemail for Elliot. KAYLA faxed referral to [facility] as pt has been there before. Awaiting call back from daughters. Addendum: 09/20/20 at 1436 by ADOLFO GARZA KAYLA spoke with both of pt's daughters, they would prefer somewhere in [facility] as they live in [place]. KAYLA provided list of facilities in [facility], awaiting confirmation of where to send the referral. KAYLA will continue to follow. Addendum: 09/20/20 at 1538 by ADOLFO GARZA Pt's daughters wanted referral faxed to [facility]. KAYLA faxed referral, awaiting acceptance decision and insurance auth. KAYLA will continue to follow.
[2020-09-20] MEDS: LACTOBACILLUS RHAMNOSUS GG 1 CAPSULE. PO SCH ×2 (11:02→20:54)
[2020-09-20] MEDS: ASPIRIN CHEWABLE 81 MG TABLET. PO SCH (11:02)
[2020-09-20] MEDS: PRASUGREL 10 MG TABLET. PO SCH (11:02)
[2020-09-20] MEDS: ISOSORBIDE MONONITRATE ER 30 MG TAB.ER.24H PO SCH (11:04)
[2020-09-20] MEDS: INSULIN GLARGINE SYRINGE. SQ SCH ×2 (11:05→21:00)
[2020-09-20] MEDS: ENOXAPARIN 40 MG/0.4 ML SYRINGE. SQ SCH (11:06)
[2020-09-20] MEDS: BRIMONIDINE 0.2% OPHTH SOLUTION 5ML BOTTLE. OU SCH ×2 (11:14→20:57)
--- NOTE | 2020-09-20 11:18 | PDOC ---
[employer] PROGRESS NOTE Date of Service DOS: DATE: 09/20/20 TIME: 11:12 Chief Complaint Chief Complaint Sepsis, unclear etiology Acute DKA Lactic Acidosis AGMA MARISABEL due to vasomotor nephropathy Morbid Obesity Asthma, Diabetes-Type II, Hypertension, Renal Failure, Appendectomy, Hysterectomy, History of nephrostomy tube History of Present Illness History of Present Illness 09/20: Patient seen and evaluated. Afebrile, no acute vents overnight. Blood cultures and urine cultures negative to date. Charts and labs reviewed. PT recommending SNF. 09/19/2020 -Patient seen and examined at bedside -Anion gap closed at 8 -Dw RN -Chart reviewed -Yanez to BSD 09/18/2020 No acute events overnight. Afebrile. Blood and urine cultures have so far returned negative. Currently on empiric IV antibiotics. Improved mental status without any sedation. Patient is alert and awake but still disoriented. Moving all extremities at this time. Anion gap is still closed. Glucose levels ranging between 140s to 150s. Pending speech evaluation. Continue IV fluids. Patient's chart, labs, images were reviewed and discussed with RN 09/17/20 No acute events overnight. Improved mental status but requiring Precedex to control agitation. Elevated blood pressures. Anion gap is now closed. Patient's chart, labs, images were reviewed and discussed with RN 80 yo F PM CAD 05/2021 (on AC), IDDM, HTN and morbid obesity, presents to the ed bibems, concern for altered mental status, found down, naked in her bedroom, not talking, by her daughter who she lives with. Patient was last known well at her baseline around 7 AM this morning where she was ambulatory, drinking coffee. Daughter reports patient is falling out of the bed that is only a few feet off the ground few times this week. No known history of DKA. Vitals/I&O Vitals/I&O: Vital Signs Date Time Temp Pulse Resp B/P (MAP) Pulse Ox O2 Delivery O2 Flow Rate FiO2 09/20/20 11:04 62 218/82 09/20/20 07:00 98.3 18 96 Room Air 98.3 I & O 09/19/20 09/19/20 09/20/20 15:00 23:00 07:00 Intake Total 300 ml Output Total 1700 ml 250 ml 1200 ml Balance -1400 ml -250 ml -1200 ml Physical Exam General: Alert, Cooperative Heart: Regular rate Lungs: Clear Abdomen: No tenderness Extremities: No edema Skin: No rashes, No significant lesion Labs Labs: Laboratory Tests Test 09/19/20 11:44 09/19/20 16:14 09/19/20 19:36 09/19/20 20:21 Glucose (Fingerstick) 210 mg/dL (70-99) 180 mg/dL (70-99) 79 mg/dL (70-99) 109 mg/dL (70-99) Test 09/20/20 05:00 09/20/20 07:24 White Blood Count 8.1 x10^3/uL (4.0-11.0) Red Blood Count 4.06 x10^6/uL (3.50-5.40) Hemoglobin 11.4 g/dL (12.0-15.5) Hematocrit 34.4 % (36.0-47.0) Mean Corpuscular Volume 85 fL (79-100) Mean Corpuscular Hemoglobin 28 pg (25-35) Mean Corpuscular Hemoglobin Concent 33 g/dL (31-37) Red Cell Distribution Width 15.0 % (11.5-14.5) Platelet Count 223 x10^3/uL (140-400) Neutrophils (%) (Auto) 66 % (31-73) Lymphocytes (%) (Auto) 24 % (24-48) Monocytes (%) (Auto) 8 % (0-9) Eosinophils (%) (Auto) 2 % (0-3) Basophils (%) (Auto) 1 % (0-3) Neutrophils # (Auto) 5.4 x10^3/uL (1.8-7.7) Lymphocytes # (Auto) 1.9 x10^3/uL (1.0-4.8) Monocytes # (Auto) 0.6 x10^3/uL (0.0-1.1) Eosinophils # (Auto) 0.2 x10^3/uL (0.0-0.7) Basophils # (Auto) 0.0 x10^3/uL (0.0-0.2) Sodium Level 144 mmol/L (136-145) Potassium Level 3.0 mmol/L (3.5-5.1) Chloride Level 108 mmol/L (98-107) Carbon Dioxide Level 25 mmol/L (21-32) Anion Gap 11 (6-14) Blood Urea Nitrogen 7 mg/dL (7-20) Creatinine 1.2 mg/dL (0.6-1.0) Estimated GFR (Cockcroft-Gault) 52.4 Glucose Level 196 mg/dL (70-99) Calcium Level 8.5 mg/dL (8.5-10.1) Glucose (Fingerstick) 201 mg/dL (70-99) Assessment and Plan Assessmemt and Plan Problems Medical Problems: (1) AMS (altered mental status) Status: Acute Comment Review of Relevant I have reviewed the following items karina (where applicable) has been applied. Medications: Current Medications Medications (Trade) Dose Ordered Sig/Jose Alejandro Route PRN Reason Start Time Stop Time Status Last Admin Dose Admin Lisinopril (Prinivil) 20 mg HS PO 09/20/20 00:30 09/20/20 00:23 Justifications for Admission Other Justification SEPSIS KENDALL TIWARI MD Sep 20, 2020 11:18
[2020-09-20] MEDS: ATORVASTATIN CALCIUM 40 MG TABLET. PO SCH (20:57)
[2020-09-20] MEDS: LATANOPROST 0.005% OPHTH SOLUTION 2.5ML BOTTLE. OU SCH (20:57)
[2020-09-20] MEDS: VANCOMYCIN 1.75 GM in IV NORMAL SALINE 500ML BAG 500 ML IV SCH (22:29)
[2020-09-21] MEDS: IV 1/2 NORMAL SALINE 1,000 ML IV SCH ×2 (00:58→13:52)
[2020-09-21] MEDS: PIPERACILLIN/TAZOBACTAM 3.375 GM in IV NORMAL SALINE 50ML 50 ML IV SCH ×2 (00:58→05:56)
[2020-09-21 03:35] VITALS: BP 200/70
[2020-09-21] MEDS: LABETALOL 20 MG/4 ML DISP.SYRIN. IVP PRN ×3 (04:06→23:14)
[2020-09-21 06:16] LABS: BASO # 0.1 x10^3/uL (0.0-0.2); BASO % 1 % (0-3); EOS # 0.3 x10^3/uL (0.0-0.7); EOS % 4 % (0-3); HEMATOCRIT 31.9 % (36.0-47.0); HEMOGLOBIN 10.7 g/dL (12.0-15.5); LYMPH # 2.1 x10^3/uL (1.0-4.8); LYMPH % 27 % (24-48); MEAN CORPUSCULAR HEMOGLOBIN 28 pg (25-35); MEAN CORPUSCULAR HGB CONC 34 g/dL (31-37); MEAN CORPUSCULAR VOLUME 84 fL (79-100); MONO # 0.8 x10^3/uL (0.0-1.1); MONO % 10 % (0-9); NEUT # 4.6 x10^3/uL (1.8-7.7); NEUT % 58 % (31-73); PLATELET COUNT 216 x10^3/uL (140-400); RED BLOOD COUNT 3.79 x10^6/uL (3.50-5.40); RED CELL DISTRIBUTION WIDTH 15.2 % (11.5-14.5); WHITE BLOOD COUNT 7.9 x10^3/uL (4.0-11.0)
[2020-09-21 06:42] LABS: CALCIUM 8.2 mg/dL (8.5-10.1); CREATININE 1.4 mg/dL (0.6-1.0); GFR 43.9
[2020-09-21 06:56] LABS: POTASSIUM 2.9 mmol/L (3.5-5.1)
[2020-09-21 07:00] VITALS: BP 181/59
--- NOTE | 2020-09-21 07:18 | NUR ---
Received critical Lab (Potassium 2.9) from [facility] at 0655. Left message for callback for Dr. Phillips at 0701
--- NOTE | 2020-09-21 07:21 | NUR ---
Dr Duckworth called and critical lab message was received.
[2020-09-21] MEDS ORDERED: POTASSIUM CHLORIDE 20 MEQ TABLET.ER. PO ONE (07:30)
--- NOTE | 2020-09-21 08:27 | PDOC ---
[employer] PROGRESS NOTE Date of Service DOS: DATE: 09/21/20 TIME: 08:11 Chief Complaint Chief Complaint Sepsis, unclear etiology Acute DKA Lactic Acidosis AGMA MARISABEL due to vasomotor nephropathy Morbid Obesity Asthma, Diabetes-Type II, Hypertension, Renal Failure, Appendectomy, Hysterectomy, History of nephrostomy tube History of Present Illness History of Present Illness 09/21: Patient seen and evaluated. She is afebrile. Blood glucose well controlled. Still with some hypertension. Urine and blood cultures negative. Chest x-ray negative. Will discontinue antibiotics. Some hypokalemia today, will replace. PT and recommended [facility]. Referral sent to [facility], acceptance pending. 09/20: Patient seen and evaluated. Afebrile, no acute vents overnight. Blood cultures and urine cultures negative to date. Charts and labs reviewed. PT recommending SNF. 09/19/2020 -Patient seen and examined at bedside -Anion gap closed at 8 -Dw RN -Chart reviewed -Yanez to BSD 09/18/2020 No acute events overnight. Afebrile. Blood and urine cultures have so far returned negative. Currently on empiric IV antibiotics. Improved mental status without any sedation. Patient is alert and awake but still disoriented. Moving all extremities at this time. Anion gap is still closed. Glucose levels ranging between 140s to 150s. Pending speech evaluation. Continue IV fluids. Patient's chart, labs, images were reviewed and discussed with RN 09/17/20 No acute events overnight. Improved mental status but requiring Precedex to control agitation. Elevated blood pressures. Anion gap is now closed. Patient's chart, labs, images were reviewed and discussed with RN 80 yo F PMH CAD 05/2021 (on AC), IDDM, HTN and morbid obesity, presents to the ed bibems, concern for altered mental status, found down, naked in her bedroom, not talking, by her daughter who she lives with. Patient was last known well at her baseline around 7 AM this morning where she was ambulatory, drinking coffee. Daughter reports patient is falling out of the bed that is only a few feet off the ground few times this week. No known history of DKA. Vitals/I&O Vitals/I&O: Vital Signs Date Time Temp Pulse Resp B/P (MAP) Pulse Ox O2 Delivery O2 Flow Rate FiO2 2/2/21 04:06 61 200/70 09/21/20 03:35 99.0 20 94 Room Air 99.0 I & O 09/20/20 09/20/20 09/21/20 15:00 23:00 07:00 Intake Total 360 ml 100 ml 660 ml Output Total 900 ml 1800 ml Balance -540 ml 100 ml -1140 ml Physical Exam General: Alert, Cooperative Heart: Regular rate Lungs: Clear Abdomen: No tenderness Extremities: No edema Skin: No rashes, No significant lesion Labs Labs: Laboratory Tests Test 09/20/20 11:53 09/20/20 16:54 09/20/20 20:46 09/21/20 04:32 Glucose (Fingerstick) 186 mg/dL (70-99) 239 mg/dL (70-99) 243 mg/dL (70-99) White Blood Count 7.9 x10^3/uL (4.0-11.0) Red Blood Count 3.79 x10^6/uL (3.50-5.40) Hemoglobin 10.7 g/dL (12.0-15.5) Hematocrit 31.9 % (36.0-47.0) Mean Corpuscular Volume 84 fL (79-100) Mean Corpuscular Hemoglobin 28 pg (25-35) Mean Corpuscular Hemoglobin Concent 34 g/dL (31-37) Red Cell Distribution Width 15.2 % (11.5-14.5) Platelet Count 216 x10^3/uL (140-400) Neutrophils (%) (Auto) 58 % (31-73) Lymphocytes (%) (Auto) 27 % (24-48) Monocytes (%) (Auto) 10 % (0-9) Eosinophils (%) (Auto) 4 % (0-3) Basophils (%) (Auto) 1 % (0-3) Neutrophils # (Auto) 4.6 x10^3/uL (1.8-7.7) Lymphocytes # (Auto) 2.1 x10^3/uL (1.0-4.8) Monocytes # (Auto) 0.8 x10^3/uL (0.0-1.1) Eosinophils # (Auto) 0.3 x10^3/uL (0.0-0.7) Basophils # (Auto) 0.1 x10^3/uL (0.0-0.2) Sodium Level 146 mmol/L (136-145) Potassium Level 2.9 mmol/L (3.5-5.1) Chloride Level 110 mmol/L (98-107) Carbon Dioxide Level 26 mmol/L (21-32) Anion Gap 10 (6-14) Blood Urea Nitrogen 6 mg/dL (7-20) Creatinine 1.4 mg/dL (0.6-1.0) Estimated GFR (Cockcroft-Gault) 43.9 Glucose Level 184 mg/dL (70-99) Calcium Level 8.2 mg/dL (8.5-10.1) Test 09/21/20 07:37 Glucose (Fingerstick) 189 mg/dL (70-99) Assessment and Plan Assessmemt and Plan Problems Medical Problems: (1) AMS (altered mental status) Status: Acute Comment Review of Relevant I have reviewed the following items karina (where applicable) has been applied. Medications: Current Medications Medications (Trade) Dose Ordered Sig/Jose Alejandro Route PRN Reason Start Time Stop Time Status Last Admin Dose Admin Labetalol HCl (Normodyne Iv Push) 20 mg PRN Q2HR PRN IVP HYPERTENSION 09/20/20 18:45 09/21/20 04:06 Justifications for Admission Other Justification SEPSIS KENDALL TIWARI MD Sep 21, 2020 08:27
[2020-09-21] MEDS: PANTOPRAZOLE IV PUSH 40 MG VIAL. IVP SCH (08:43)
[2020-09-21] MEDS: LACTOBACILLUS RHAMNOSUS GG 1 CAPSULE. PO SCH ×2 (08:43→21:28)
[2020-09-21] MEDS: PRASUGREL 10 MG TABLET. PO SCH (08:43)
[2020-09-21] MEDS: ASPIRIN CHEWABLE 81 MG TABLET. PO SCH (08:44)
[2020-09-21] MEDS: hydroCHLOROthiazide 25 MG TABLET PO SCH (08:45)
[2020-09-21] MEDS: BRIMONIDINE 0.2% OPHTH SOLUTION 5ML BOTTLE. OU SCH ×2 (08:46→21:30)
[2020-09-21] MEDS: ISOSORBIDE MONONITRATE ER 30 MG TAB.ER.24H PO SCH (08:46)
[2020-09-21] MEDS: INSULIN LISPRO 300 UNITS/3 ML VIAL. SQ SCH ×4 (08:59→21:00)
[2020-09-21 11:00] VITALS: BP 169/68
[2020-09-21] MEDS: INSULIN GLARGINE SYRINGE. SQ SCH ×2 (11:15→21:33)
--- NOTE | 2020-09-21 11:53 | NUR ---
SS following up with discharge planning. SS reviewed pt chart and discussed with pt RN. Pt is currently on room air. COVID19 negative. PT/OT recommended care home unit. Pt's family requesting referral to [facility], ; fax [phone]. Referral was phoned and faxed yesterday for SW. SS contacted [facility] to follow up on referral and was notified that they did not receive full referral. SS phoned and faxed referral again and am currently awaiting acceptance decision. Per RN, not stable for discharge today due to blood pressure. SS will continue to follow for discharge planning.
[2020-09-21] MEDS: ENOXAPARIN 40 MG/0.4 ML SYRINGE. SQ SCH (13:55)
[2020-09-21 15:00] VITALS: BP 192/59
[2020-09-21 19:25] VITALS: BP 198/81
[2020-09-21] MEDS: ATORVASTATIN CALCIUM 40 MG TABLET. PO SCH (21:28)
[2020-09-21] MEDS: LISINOPRIL 20 MG TABLET PO SCH (21:29)
[2020-09-21] MEDS: LATANOPROST 0.005% OPHTH SOLUTION 2.5ML BOTTLE. OU SCH (21:29)
[2020-09-21 22:54] VITALS: BP 220/76
[2020-09-22] MEDS: IV 1/2 NORMAL SALINE 1,000 ML IV SCH ×2 (01:31→08:59)
[2020-09-22 02:54] VITALS: BP 235/76
[2020-09-22] MEDS: LABETALOL 20 MG/4 ML DISP.SYRIN. IVP PRN (02:59)
[2020-09-22 06:41] LABS: BASO # 0.1 x10^3/uL (0.0-0.2); BASO % 1 % (0-3); EOS # 0.3 x10^3/uL (0.0-0.7); EOS % 4 % (0-3); HEMATOCRIT 33.6 % (36.0-47.0); HEMOGLOBIN 11.1 g/dL (12.0-15.5); LYMPH % 25 % (24-48); MEAN CORPUSCULAR HEMOGLOBIN 28 pg (25-35); MEAN CORPUSCULAR HGB CONC 33 g/dL (31-37); MEAN CORPUSCULAR VOLUME 85 fL (79-100); MONO # 0.7 x10^3/uL (0.0-1.1); MONO % 9 % (0-9); NEUT # 4.8 x10^3/uL (1.8-7.7); NEUT % 60 % (31-73); PLATELET COUNT 246 x10^3/uL (140-400); RED BLOOD COUNT 3.97 x10^6/uL (3.50-5.40); RED CELL DISTRIBUTION WIDTH 15.2 % (11.5-14.5); WHITE BLOOD COUNT 7.9 x10^3/uL (4.0-11.0)
[2020-09-22 06:46] LABS: CALCIUM 8.5 mg/dL (8.5-10.1); CREATININE 1.6 mg/dL (0.6-1.0); GFR 37.6
[2020-09-22 06:50] LABS: POTASSIUM 2.9 mmol/L (3.5-5.1)
[2020-09-22 07:00] VITALS: BP 205/67
[2020-09-22] MEDS ORDERED: POTASSIUM BICARB 20 MEQ EFFERVESCENT TABLET. PO ONE (07:15)
[2020-09-22] MEDS ORDERED: PANTOPRAZOLE 40 MG TABLET.DR. PO SCH (07:30)
[2020-09-22] MEDS: INSULIN LISPRO 300 UNITS/3 ML VIAL. SQ SCH ×2 (07:30→12:13)
[2020-09-22] MEDS: ASPIRIN CHEWABLE 81 MG TABLET. PO SCH (08:51)
[2020-09-22] MEDS: LACTOBACILLUS RHAMNOSUS GG 1 CAPSULE. PO SCH (08:51)
[2020-09-22] MEDS: ISOSORBIDE MONONITRATE ER 30 MG TAB.ER.24H PO SCH (08:51)
[2020-09-22] MEDS: PRASUGREL 10 MG TABLET. PO SCH (08:51)
[2020-09-22] MEDS: hydroCHLOROthiazide 25 MG TABLET PO SCH (08:52)
[2020-09-22] MEDS: BRIMONIDINE 0.2% OPHTH SOLUTION 5ML BOTTLE. OU SCH (08:52)
[2020-09-22] MEDS: INSULIN GLARGINE SYRINGE. SQ SCH (08:58)
--- NOTE | 2020-09-22 09:19 | NUR ---
SW following. Discussed with RN, pt accepted at [facility]. Pt likely can discharge today. KAYLA spoke with Zoie at [facility], [facility] has waived the pre auth requirement so pt can transfer to the facility when medically stable. KAYLA notified Dr. Duckworth. KAYLA will continue to follow. Addendum: 09/22/20 at 1336 by ADOLFO GARZA Discharge orders faxed to [facility]. Transportation arranged for 1530 by [employer]. RN and family notified. No further SW needs.
[2020-09-22 11:00] VITALS: BP 186/84
[2020-09-22] MEDS: ENOXAPARIN 40 MG/0.4 ML SYRINGE. SQ SCH (12:10)
--- NOTE | 2020-09-22 13:13 | SNU/HH DC ---
DISCHARGE ORDERS DISCHARGE INFORMATION: DISCHARGE DATE: Sep 22, 2020 FINAL DIAGNOSIS Problems Medical Problems: (1) AMS (altered mental status) Status: Acute CONDITION ON DISCHARGE: Stable CODE STATUS: Code Status: Full USP: SNF STAY <30 DAYS: Yes POST DISCHARGE ORDERS: ACTIVITY ORDERS: Other, see below WEIGHT BEARING STATUS: Other, see below DIET AFTER DISCHARGE: Cardiac CHECKS AFTER DISCHARGE: CHECKS AFTER DISCHARGE: Check blood press - daily, Check blood sugar, ac/hs (Check potassium and basic metabolic panel weekly), Check your Temp as needed, Weigh Yourself Daily TREATMENT/EQUIPMENT ORDERS: ADAPTIVE EQUIPMENT NEEDED: [facility] Physical Therapy For: Evalulation/Treatment Occupational Therapy For: Evaluation/Treatment DISCHARGE MEDICATIONS: Home Meds Active Scripts Potassium Chloride (KLOR-CON M20) 20 Meq Tab.er.prt, 20 MEQ PO DAILY for Hypokalemia, #30 TAB.SR Prov:KENDALL TIWARI MD 09/22/20 Lisinopril (LISINOPRIL) 40 Mg Tablet, 40 MG PO HS for HTN, #30 TAB 1 Refill Prov:KENDALL TIWARI MD 09/22/20 Amlodipine Besylate (AMLODIPINE BESYLATE) 10 Mg Tablet, 10 MG PO BID for HTN, #60 TAB Prov:KENDALL TIWARI MD 09/22/20 Atorvastatin Calcium (ATORVASTATIN CALCIUM) 40 Mg Tablet, 40 MG PO QHS for HLD for 90 Days, #90 TAB 3 Refills Prov:CHRISS SLATER MD 06/02/20 Prasugrel Hcl (EFFIENT) 10 Mg Tablet, 10 MG PO DAILYWBKFT for CAD for 90 Days, #90 TAB 3 Refills Prov:CHRISS SLATER MD 06/02/20 Reported Medications Brimonidine Tartrate (BRIMONIDINE TARTRATE) 5 Ml Drops, 1 DROP EACHEYE BID for glaucoma, #10 ML 0 Refills 09/18/20 Citalopram Hydrobromide (CITALOPRAM HBR) 10 Mg Tablet, 1 TAB PO DAILY for depression, #30 TAB 3 Refills 09/18/20 Budesonide/Formoterol Fumarate (SYMBICORT 160-4.5 MCG INHALER) 10.2 Gm Hfa.aer.ad, 2 PUFF IH BID for , #1 INHALER 5 Refills 06/01/20 Aspirin (ASPIRIN) 325 Mg Tablet, 325 MG PO DAILY for , TAB 06/01/20 Brimonidine Tartrate (ALPHAGAN P) 5 Ml Drops, 1 DROP OU BID for 06/01/20 Latanoprost (LATANOPROST) 2.5 Ml Drops, 1 DROP OU BID for 06/01/20 Omeprazole (OMEPRAZOLE) 20 Mg Capsule.dr, 20 MG PO DAILY for 06/01/20 Isosorbide Mononitrate (ISOSORBIDE MONONITRATE ER) 120 Mg Tab.er.24h, 1 TAB PO QAM for HTN for 90 Days, #90 06/01/20 Gabapentin (Gabapentin) 300 Mg Capsule, 1 CAP PO TID for DM2 for 90 Days, #270 06/01/20 Metformin Hcl (METFORMIN HCL) 1,000 Mg Tablet, 1 TAB PO BID for DM2 for 90 Days, #180 06/01/20 Insulin Glargine,Hum.rec.anlog (Toujeo Solostar) 300 Unit/1 Ml Insuln.pen, 20 UNITS SQ QHS for DM2 for 90 Days, #90 06/01/20 Sertraline Hcl (SERTRALINE HCL) 50 Mg Tablet, 1 TAB PO DAILY for Mood for 90 Days, #90 3 Refills 06/01/20 Furosemide (LASIX) 40 Mg Tablet, 40 MG PO DAILYWBKFT, TAB 04/10/17 Hydrocodone Bit/Acetaminophen (HYDROCODONE-APAP 7.5-325 ) 1 Each Tablet, #60 11/22/15 Metoprolol Succinate (Metoprolol Succinate) 50 Mg Tab.er.24h, 50 DAILY, #30 11/22/15 Discontinued Reported Medications Amlodipine Besylate (AMLODIPINE BESYLATE) 5 Mg Tablet, 5 MG PO BID for , #60 11/22/15 KENDALL TIWARI MD Sep 22, 2020 13:13
[2020-09-22] MEDS ORDERED: AMLO-187 PO (13:16)
[2020-09-22] MEDS ORDERED: LISI-130 PO (13:16)
[2020-09-22] MEDS ORDERED: POTA20TA4 PO (13:34)
--- NOTE | 2020-09-22 13:34 | PDOC ---
[employer] PROGRESS NOTE Date of Service DOS: DATE: 09/22/20 TIME: 13:25 Chief Complaint Chief Complaint Sepsis, unclear etiology Acute DKA Lactic Acidosis AGMA MARISABEL due to vasomotor nephropathy Morbid Obesity Asthma, Diabetes-Type II, Hypertension, Renal Failure, Appendectomy, Hysterectomy, History of nephrostomy tube History of Present Illness History of Present Illness 09/22: Patient seen and examined. No acute events overnight. Still with some hypertension, and I have adjusted her blood pressure medications. Potassium replaced. Accepted to SNU. Greater than 30 minutes spent managing the discharge this patient. 09/21: Patient seen and evaluated. She is afebrile. Blood glucose well controlled. Still with some hypertension. Urine and blood cultures negative. Chest x-ray negative. Will discontinue antibiotics. Some hypokalemia today, will replace. PT and recommended correction facility. Referral sent to [facility], acceptance pending. 09/20: Patient seen and evaluated. Afebrile, no acute vents overnight. Blood cultures and urine cultures negative to date. Charts and labs reviewed. PT recommending SNF. 09/19/2020 -Patient seen and examined at bedside -Anion gap closed at 8 -Dw RN -Chart reviewed -Yanez to BSD 09/18/2020 No acute events overnight. Afebrile. Blood and urine cultures have so far returned negative. Currently on empiric IV antibiotics. Improved mental status without any sedation. Patient is alert and awake but still disoriented. Moving all extremities at this time. Anion gap is still closed. Glucose levels ranging between 140s to 150s. Pending speech evaluation. Continue IV fluids. Patient's chart, labs, images were reviewed and discussed with RN 09/17/20 No acute events overnight. Improved mental status but requiring Precedex to control agitation. Elevated blood pressures. Anion gap is now closed. Patient's chart, labs, images were reviewed and discussed with RN 80 yo F PMH CAD 05/2021 (on AC), IDDM, HTN and morbid obesity, presents to the ed bibems, concern for altered mental status, found down, naked in her bedroom, not talking, by her daughter who she lives with. Patient was last known well at her baseline around 7 AM this morning where she was ambulatory, drinking coffee. Daughter reports patient is falling out of the bed that is only a few feet off the ground few times this week. No known history of DKA. Vitals/I&O Vitals/I&O: Vital Signs Date Time Temp Pulse Resp B/P (MAP) Pulse Ox O2 Delivery O2 Flow Rate FiO2 09/22/20 11:00 97.8 85 16 186/84 (118) 98 Room Air 97.8 09/21/20 15:00 2.0 I & O 09/21/20 09/21/20 09/22/20 15:00 23:00 07:00 Intake Total 900 ml 120 ml 2640 ml Output Total 1100 ml Balance 900 ml 120 ml 1540 ml Physical Exam General: Alert, Cooperative Heart: Regular rate Lungs: Clear Abdomen: No tenderness Extremities: No edema Skin: No rashes, No significant lesion Labs Labs: Laboratory Tests Test 09/21/20 14:23 09/21/20 16:54 09/21/20 21:00 09/22/20 06:15 Coronavirus (PCR) Not detected (Not Detected) Glucose (Fingerstick) 183 mg/dL (70-99) 178 mg/dL (70-99) White Blood Count 7.9 x10^3/uL (4.0-11.0) Red Blood Count 3.97 x10^6/uL (3.50-5.40) Hemoglobin 11.1 g/dL (12.0-15.5) Hematocrit 33.6 % (36.0-47.0) Mean Corpuscular Volume 85 fL (79-100) Mean Corpuscular Hemoglobin 28 pg (25-35) Mean Corpuscular Hemoglobin Concent 33 g/dL (31-37) Red Cell Distribution Width 15.2 % (11.5-14.5) Platelet Count 246 x10^3/uL (140-400) Neutrophils (%) (Auto) 60 % (31-73) Lymphocytes (%) (Auto) 25 % (24-48) Monocytes (%) (Auto) 9 % (0-9) Eosinophils (%) (Auto) 4 % (0-3) Basophils (%) (Auto) 1 % (0-3) Neutrophils # (Auto) 4.8 x10^3/uL (1.8-7.7) Lymphocytes # (Auto) 2.0 x10^3/uL (1.0-4.8) Monocytes # (Auto) 0.7 x10^3/uL (0.0-1.1) Eosinophils # (Auto) 0.3 x10^3/uL (0.0-0.7) Basophils # (Auto) 0.1 x10^3/uL (0.0-0.2) Sodium Level 143 mmol/L (136-145) Potassium Level 2.9 mmol/L (3.5-5.1) Chloride Level 109 mmol/L (98-107) Carbon Dioxide Level 25 mmol/L (21-32) Anion Gap 9 (6-14) Blood Urea Nitrogen 6 mg/dL (7-20) Creatinine 1.6 mg/dL (0.6-1.0) Estimated GFR (Cockcroft-Gault) 37.6 Glucose Level 170 mg/dL (70-99) Calcium Level 8.5 mg/dL (8.5-10.1) Test 09/22/20 07:23 09/22/20 11:42 09/22/20 12:20 Glucose (Fingerstick) 145 mg/dL (70-99) 215 mg/dL (70-99) Potassium Level 3.5 mmol/L (3.5-5.1) Assessment and Plan Assessmemt and Plan Problems Medical Problems: (1) AMS (altered mental status) Status: Acute Comment Review of Relevant I have reviewed the following items karina (where applicable) has been applied. Medications: Current Medications Medications (Trade) Dose Ordered Sig/Jose Alejandro Route PRN Reason Start Time Stop Time Status Last Admin Dose Admin Pantoprazole Sodium (Protonix) 40 mg DAILYAC PO 09/22/20 07:30 09/22/20 08:52 Potassium Bicarbonate (Potassium Effervescent Tablet) 40 meq 1X ONCE PO 09/22/20 07:15 09/22/20 07:16 DC 09/22/20 08:51 Justifications for Admission Other Justification SEPSIS KENDALL TIWARI MD Sep 22, 2020 13:34
--- NOTE | 2020-09-22 13:45 | NUR ---
Called and gave report to Chau at [facility].
--- NOTE | 2020-09-22 13:47 | PDOC3 ---
Discharge Summary Visit Information Date of Admission: Sep 16, 2020 Date of Discharge: Sep 22, 2020 Final Diagnosis Problems Medical Problems: (1) AMS (altered mental status) Status: Acute Brief Hospital Course Allergies Allergies Coded Allergies Type Severity Reaction Last Updated Verified Sulfa (Sulfonamide Antibiotics) Allergy Intermediate 09/19/14 Yes Vital Signs Vital Signs Date Time Temp Pulse Resp B/P (MAP) Pulse Ox O2 Delivery O2 Flow Rate FiO2 09/22/20 11:00 97.8 85 16 186/84 (118) 98 Room Air 97.8 09/21/20 15:00 2.0 Lab Results Laboratory Tests Test 09/20/20 16:54 09/20/20 20:46 09/21/20 04:32 09/21/20 07:37 Glucose (Fingerstick) 239 mg/dL (70-99) 243 mg/dL (70-99) 189 mg/dL (70-99) White Blood Count 7.9 x10^3/uL (4.0-11.0) Red Blood Count 3.79 x10^6/uL (3.50-5.40) Hemoglobin 10.7 g/dL (12.0-15.5) Hematocrit 31.9 % (36.0-47.0) Mean Corpuscular Volume 84 fL (79-100) Mean Corpuscular Hemoglobin 28 pg (25-35) Mean Corpuscular Hemoglobin Concent 34 g/dL (31-37) Red Cell Distribution Width 15.2 % (11.5-14.5) Platelet Count 216 x10^3/uL (140-400) Neutrophils (%) (Auto) 58 % (31-73) Lymphocytes (%) (Auto) 27 % (24-48) Monocytes (%) (Auto) 10 % (0-9) Eosinophils (%) (Auto) 4 % (0-3) Basophils (%) (Auto) 1 % (0-3) Neutrophils # (Auto) 4.6 x10^3/uL (1.8-7.7) Lymphocytes # (Auto) 2.1 x10^3/uL (1.0-4.8) Monocytes # (Auto) 0.8 x10^3/uL (0.0-1.1) Eosinophils # (Auto) 0.3 x10^3/uL (0.0-0.7) Basophils # (Auto) 0.1 x10^3/uL (0.0-0.2) Sodium Level 146 mmol/L (136-145) Potassium Level 2.9 mmol/L (3.5-5.1) Chloride Level 110 mmol/L (98-107) Carbon Dioxide Level 26 mmol/L (21-32) Anion Gap 10 (6-14) Blood Urea Nitrogen 6 mg/dL (7-20) Creatinine 1.4 mg/dL (0.6-1.0) Estimated GFR (Cockcroft-Gault) 43.9 Glucose Level 184 mg/dL (70-99) Calcium Level 8.2 mg/dL (8.5-10.1) Test 09/21/20 11:39 09/21/20 14:23 09/21/20 16:54 09/21/20 21:00 Glucose (Fingerstick) 208 mg/dL (70-99) 183 mg/dL (70-99) 178 mg/dL (70-99) Coronavirus (PCR) Not detected (Not Detected) Test 09/22/20 06:15 09/22/20 07:23 09/22/20 11:42 09/22/20 12:20 White Blood Count 7.9 x10^3/uL (4.0-11.0) Red Blood Count 3.97 x10^6/uL (3.50-5.40) Hemoglobin 11.1 g/dL (12.0-15.5) Hematocrit 33.6 % (36.0-47.0) Mean Corpuscular Volume 85 fL (79-100) Mean Corpuscular Hemoglobin 28 pg (25-35) Mean Corpuscular Hemoglobin Concent 33 g/dL (31-37) Red Cell Distribution Width 15.2 % (11.5-14.5) Platelet Count 246 x10^3/uL (140-400) Neutrophils (%) (Auto) 60 % (31-73) Lymphocytes (%) (Auto) 25 % (24-48) Monocytes (%) (Auto) 9 % (0-9) Eosinophils (%) (Auto) 4 % (0-3) Basophils (%) (Auto) 1 % (0-3) Neutrophils # (Auto) 4.8 x10^3/uL (1.8-7.7) Lymphocytes # (Auto) 2.0 x10^3/uL (1.0-4.8) Monocytes # (Auto) 0.7 x10^3/uL (0.0-1.1) Eosinophils # (Auto) 0.3 x10^3/uL (0.0-0.7) Basophils # (Auto) 0.1 x10^3/uL (0.0-0.2) Sodium Level 143 mmol/L (136-145) Potassium Level 2.9 mmol/L (3.5-5.1) 3.5 mmol/L (3.5-5.1) Chloride Level 109 mmol/L (98-107) Carbon Dioxide Level 25 mmol/L (21-32) Anion Gap 9 (6-14) Blood Urea Nitrogen 6 mg/dL (7-20) Creatinine 1.6 mg/dL (0.6-1.0) Estimated GFR (Cockcroft-Gault) 37.6 Glucose Level 170 mg/dL (70-99) Calcium Level 8.5 mg/dL (8.5-10.1) Glucose (Fingerstick) 145 mg/dL (70-99) 215 mg/dL (70-99) Laboratory Tests Test 09/21/20 14:23 09/21/20 16:54 09/21/20 21:00 09/22/20 06:15 Coronavirus (PCR) Not detected (Not Detected) Glucose (Fingerstick) 183 mg/dL (70-99) 178 mg/dL (70-99) White Blood Count 7.9 x10^3/uL (4.0-11.0) Red Blood Count 3.97 x10^6/uL (3.50-5.40) Hemoglobin 11.1 g/dL (12.0-15.5) Hematocrit 33.6 % (36.0-47.0) Mean Corpuscular Volume 85 fL (79-100) Mean Corpuscular Hemoglobin 28 pg (25-35) Mean Corpuscular Hemoglobin Concent 33 g/dL (31-37) Red Cell Distribution Width 15.2 % (11.5-14.5) Platelet Count 246 x10^3/uL (140-400) Neutrophils (%) (Auto) 60 % (31-73) Lymphocytes (%) (Auto) 25 % (24-48) Monocytes (%) (Auto) 9 % (0-9) Eosinophils (%) (Auto) 4 % (0-3) Basophils (%) (Auto) 1 % (0-3) Neutrophils # (Auto) 4.8 x10^3/uL (1.8-7.7) Lymphocytes # (Auto) 2.0 x10^3/uL (1.0-4.8) Monocytes # (Auto) 0.7 x10^3/uL (0.0-1.1) Eosinophils # (Auto) 0.3 x10^3/uL (0.0-0.7) Basophils # (Auto) 0.1 x10^3/uL (0.0-0.2) Sodium Level 143 mmol/L (136-145) Potassium Level 2.9 mmol/L (3.5-5.1) Chloride Level 109 mmol/L (98-107) Carbon Dioxide Level 25 mmol/L (21-32) Anion Gap 9 (6-14) Blood Urea Nitrogen 6 mg/dL (7-20) Creatinine 1.6 mg/dL (0.6-1.0) Estimated GFR (Cockcroft-Gault) 37.6 Glucose Level 170 mg/dL (70-99) Calcium Level 8.5 mg/dL (8.5-10.1) Test 09/22/20 07:23 09/22/20 11:42 09/22/20 12:20 Glucose (Fingerstick) 145 mg/dL (70-99) 215 mg/dL (70-99) Potassium Level 3.5 mmol/L (3.5-5.1) Brief Hospital Course Ms. Pugh is a 80 old female who presented with sepsis secondary to acute DKA, metabolic encephalopathy, lactic acidosis, MARISABEL, vasomotor nephropathy. Patient was admitted to the ICU on DKA protocol. She was treated with empiric IV antibiotics. Her gap closed she was transitioned to medical floors. Blood cultures and urine cultures were negative, chest x-ray clear. Antibiotics were discontinued. Hospital course was complicated by some difficult to manage hypertension. She was accepted and discharged to senior living unit. Discharge Information Condition at Discharge: Improved Follow Up: Weeks Disposition/Orders: D/C to Another Facility Scheduled Amlodipine Besylate (Amlodipine Besylate) 10 Mg Tablet, 10 MG PO BID for HTN, #60 Prescribed by: KENDALL TIWARI MD on 09/22/20 1316 Aspirin (Aspirin) 325 Mg Tablet, 325 MG PO DAILY for , (Reported) Entered as Reported by: Juliana Bradshaw on 06/01/20 111 Last Taken: UNKNOWN on Unknown Date & Time Last Action: Continued on 09/18/20 123 by GERALDO RAO Atorvastatin Calcium (Atorvastatin Calcium) 40 Mg Tablet, 40 MG PO QHS for HLD for 90 Days, #90 Ref 3 Prescribed by: CHRISS SLATER MD on 06/02/20 1233 Last Taken: UNKNOWN on Unknown Date & Time Last Action: Continued on 09/18 by GERALDO RAO Brimonidine Tartrate (Alphagan P) 5 Ml Drops, 1 DROP OU BID for , (Reported) Entered as Reported by: Juliana Bradshaw on 06/01/20 1107 Last Taken: UNKNOWN on Unknown Date & Time Last Action: Converted on 09/18/20 123 by GERALDO RAO Brimonidine Tartrate (Brimonidine Tartrate) 5 Ml Drops, 1 DROP EACHEYE BID for glaucoma, #10 Ref 0 (Reported) Entered as Reported by: GERALDO RAO on 09/18/201212 Last Taken: UNKNOWN on Unknown Date & Time Last Action: Continued on 09/18/201234 by GERALDO RAO Budesonide/Formoterol Fumarate (Symbicort 160-4.5 Mcg Inhaler) 10.2 Gm Hfa.aer.ad, 2 PUFF IH BID for , #1 Ref 5 (Reported) Entered as Reported by: Juliana Bradshaw on 06/01/201112 Last Taken: UNKNOWN on Unknown Date & Time Last Action: Last Taken Edited on 09/18/201212 by GERALDO RAO Citalopram Hydrobromide (Citalopram Hbr) 10 Mg Tablet, 1 TAB PO DAILY for depression, #30 Ref 3 (Reported) Entered as Reported by: GERALDO RAO on 09/18/201206 Last Taken: UNKNOWN on Unknown Date & Time Last Action: New Order on 09/18/201206 by GERALDO RAO Furosemide (Lasix) 40 Mg Tablet, 40 MG PO DAILYWBKFT, (Reported) Entered as Reported by: VALERIE MCKEON on 04/10/17 1642 Last Taken: UNKNOWN on Unknown Date & Time Last Action: Last Taken Edited on 09/18/20 1207 by GERALDO RAO Gabapentin (Gabapentin) 300 Mg Capsule, 1 CAP PO TID for DM2 for 90 Days, #270 (Reported) Entered as Reported by: CHRISS SLATER MD on 06/01/20809 Last Taken: UNKNOWN on Unknown Date & Time Last Action: Continued on 09/18 1235 by GERALDO RAO Insulin Glargine,Hum.rec.anlog (Toujeo Solostar) 300 Unit/1 Ml Insuln.pen, 20 UN ITS SQ QHS for DM2 for 90 Days, #90 (Reported) Entered as Reported by: CHRISS SLATER MD on 06/01/20809 Last Taken: UNKNOWN on Unknown Date & Time Last Action: Last Taken Edited on 09/18/201212 by GERALDO RAO Isosorbide Mononitrate (Isosorbide Mononitrate Er) 120 Mg Tab.er.24h, 1 TAB PO QAM for HTN for 90 Days, #90 (Reported) Entered as Reported by: CHRISS SLATER MD on 06/01/20809 Last Taken: UNKNOWN on Unknown Date & Time Last Action: Converted on 09/18/20 123 by GERALDO RAO Latanoprost (Latanoprost) 2.5 Ml Drops, 1 DROP OU BID for , (Reported) Entered as Reported by: Juliana Bradshaw on 06/01/20 1107 Last Taken: UNKNOWN on Unknown Date & Time Last Action: Continued on 09/18/20 1235 by GERALDO RAO Lisinopril (Lisinopril) 40 Mg Tablet, 40 MG PO HS for HTN, #30 Ref 1 Prescribed by: KENDALL TIWARI MD on 09/22/20 1316 Metformin Hcl (Metformin Hcl) 1,000 Mg Tablet, 1 TAB PO BID for DM2 for 90 Days, #180 (Reported) Entered as Reported by: CHRISS SLATER MD on 06/01/20809 Last Taken: UNKNOWN on Unknown Date & Time Last Action: Last Taken Edited on 09/18/20 1213 by GERALDO RAO Metoprolol Succinate (Metoprolol Succinate) 50 Mg Tab.er.24h, 50 DAILY, #30 (Reported) Entered as Reported by: JAMMIE DOWLING on 11/22/15506 Last Taken: UNKNOWN on Unknown Date & Time Last Action: Last Taken Edited on 09/18/20 1207 by GERALDO RAO Omeprazole (Omeprazole) 20 Mg Capsule.dr, 20 MG PO DAILY for , (Reported) Entered as Reported by: Juliana Bradshaw on 06/01/20 1107 Last Taken: UNKNOWN on Unknown Date & Time Last Action: Last Taken Edited on 09/18/20 121 by GERALDO RAO Potassium Chloride (Klor-Con M20) 20 Meq Tab.er.prt, 20 MEQ PO DAILY for Hypokalemia, #30 Prescribed by: KENDALL TIWARI MD on 09/22/20 1334 Prasugrel Hcl (Effient) 10 Mg Tablet, 10 MG PO DAILYWBKFT for CAD for 90 Days, #90 Ref 3 Prescribed by: CHRISS SLATER MD on 06/02/20 1233 Last Taken: UNKNOWN on Unknown Date & Time Last Action: Continued on 09/18/20 1235 by GERALDO RAO Sertraline Hcl (Sertraline Hcl) 50 Mg Tablet, 1 TAB PO DAILY for Mood for 90 Days, #90 Ref 3 (Reported) Entered as Reported by: CHRISS SLATER MD on 06/01/20 0810 Last Taken: UNKNOWN on Unknown Date & Time Last Action: Last Taken Edited on 09/18/20 120 by GERALDO RAO Miscellaneous Medications Hydrocodone Bit/Acetaminophen (Hydrocodone-Apap 7.5-325 ) 1 Each Tablet, #60 (Reported) Entered as Reported by: JAMMIE DOWLING on 11/22/15506 Last Taken: UNKNOWN on Unknown Date & Time Last Action: Last Taken Edited on 09/18/20 121 by GERALDO RAO Discontinued Medications Amlodipine Besylate (Amlodipine Besylate) 5 Mg Tablet, 5 MG PO BID for , #60 (Reported) Entered as Reported by: JAMMIE DOWLING on 11/22/15506 Last Taken: UNKNOWN on Unknown Date & Time Last Action: Continued on 09/18/20 1235 by GERALDO RAO Justicifation of Admission Dx: Justifications for Admission: Justification of Admission Dx: Yes KENDALL TIWARI MD Sep 22, 2020 13:46
--- NOTE | 2020-09-22 15:45 | NUR ---
Pt discharged to SNF; PICC removed without complications. Assisted pt with dressing. 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 Pt assisted to wheelchair and taken by transportation.
== END 2020-09-22 15:49 | DRG 871 ==
LOC: ER 17:30 → 1 WEST ICU 21:45 → 4 NORTH 09-18 15:30
PROVIDERS: ADMIT Internal Medicine; ATTEND Internal Medicine
PROC: 02HV33Z Insertion of Infusion Device into Superior Vena Cava, Percutaneous Approach (ICD-10-PCS; principal; 2020-09-17)
DX: A41.9 Sepsis, unspecified organism (principal); E11.10 Type 2 diabetes mellitus with ketoacidosis without coma; N17.0 Acute kidney failure with tubular necrosis; G93.41 Metabolic encephalopathy; E66.01 Morbid (severe) obesity due to excess calories; E87.6 Hypokalemia; I10 Essential (primary) hypertension; I25.10 Atherosclerotic heart disease of native coronary artery without angina pectoris; J45.909 Unspecified asthma, uncomplicated; Z79.4 Long term (current) use of insulin; Z68.36 Body mass index [BMI] 36.0-36.9, adult; Z90.49 Acquired absence of other specified parts of digestive tract; Z90.710 Acquired absence of both cervix and uterus; Z93.6 Other artificial openings of urinary tract status; Z95.5 Presence of coronary angioplasty implant and graft; Z88.2 Allergy status to sulfonamides; Z20.822 Contact with and (suspected) exposure to COVID-19
CPT/HCPCS: 36415; 36569; 36600; 51702; 70450; 71045; 71275; 74174; 80048; 80053; 80076; 80202; 80307; 80329; 81001; 82010; 82550; 82805; 82962; 83605; 83735; 83880; 84100; 84132; 84145; 84443; 84484; 85007; 85025; 85379; 85610; 85730; 87040; 87086; 87804; 93005; 96365; 96367; 96368; 96372; 96375; 99285; C9113; J0696; J1630; J1650; J1815; J2250; J2543; J3370; J3480; J3490; J7030; J7040; J7042; J7050; Q9967; U0003; 97110-GP; 97116-GP; 97530-GO; 97530-GP; 97535-GO; G0378; G0480